=== PATIENT | male | born 1990 | race African-American/Black ===

== ENCOUNTER 2024-05-30 09:28 | Outpatient (AMB) | payer MEDICAID, SELFPAY ==
[2024-05-30 09:41] VITALS: BP 142/92; PULSE 102; RESP 19; TEMP 36.4; O2SAT 97; BMI 18.6
--- NOTE | 2024-05-30 09:41 | PD.GSCLVISIT ---
Vital Signs - [facility] 05/30/24 09:41 Height 1.91 m Height Method Stated Weight 67.614 kg Weight Measurement Method Standing Scale BMI 18.6 BP 142/92 H Blood Pressure Source Automatic Cuff Blood Pressure Location Left Upper Arm Position Sitting Respiration 19 Pulse 102 H Pulse Source Monitor Temp 97.6 F Temp Source Temporal Artery Scan Pulse Oximetry (%) 97 Oxygen Delivery Method Room Air Med/Allergies Allergies & Medications Allergies No Known Allergies Allergy (Verified 05/30/24 09:42) Medication Reconciliation Unobtainable 05/30/24 [History Confirmed 05/30/24] MA Intake Visit Data Collection New Patient or Established: New Patient (never been to [facility]) Seen by Clinical Staff ONLY (RN/MA): No Reason for Visit:: referral crohns disease Pain Present Currently: Yes Pain Location: Unable to identify Pain scale:: 10 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 Discussed the benefits of quitting smoking with patient. Encouraged patient to quit smoking and provided Cessation assistance materials and resources. Tobacco Use: Cigarette Years smoked: 2 Are you interested in quitting?: No Would you like additional Smoking Cessation Counseling?: No Immunization / Flu Flu Vaccine in the Last 12 Months: Yes Flu Vaccine Exclusion Criteria: Already Received Past Medical History Past Medical History CARDIAC: Negative Cardiac Disorders RESPIRATORY: Negative Asthma GENITOURINARY: Negative Renal Disease ENDOCRINE: Negative Diabetes Mellitus Type 2 HEMATOLOGIC: Negative Sickle Cell Disease Social History SMOKING STATUS: Smoking status: Current every day smoker HPI HPI Narrative 33 y/o M with Crohn disease presents with perianal drainage. Pt states he has long had perianal fistulae and is currently having stool output from the fistula, moreso than per rectum. He also reports spotting blood when whe wipes the area. He states that he had mild improvement with zosyn given during his recent hospitalization. He reports abdominal pain with watery diarrhea x6-7 a day, nausea due to pain, chills and weight loss over the years but denies any hemorrhoids. Pt is currently taking remicade per his GI which has been on for three years, he reports it is an improvement from when he was on humira previously but he has not tried any other medications. He has GI follow up on Jul 05, 2024 Of note his last colonoscopy was 2 years ago and he has never had EGD. Pt saw a surgeon in [place] who stated he could have a temporary diverting ostomy to allow the fistulae to heal; pt wanted to seek a second opinion before pursuing this surgery PMH: Crohn disease, pt reports diagnosed 17 years ago PSH: Seton placed 2 years ago but later removed All: NKDA Meds: Remicade for past 3 years, Prednisone as needed FHx: mother and father have HTN Social: not currently working, lives with parents and 3 dogs, denies tobacco or etoh use but reports using Marijuana for pain control and appetite stimulant. ROS Review of Systems Systems Reviewed: All systems reviewed, normal except as documented Constitutional Constitutional: Reports chills, Reports excessive sweating, Reports fatigue, Denies fever(s) and Reports poor appetite Eyes Eyes: Denies change in vision ENT Ears, Nose, Mouth, and Throat: Denies abnormal hearing and Denies odynophagia Cardiovascular Cardiovascular: Denies edema, Reports lightheadedness and Reports rapid heart rate Gastrointestinal Gastrointestinal: Reports abdominal pain, Reports nausea and Denies odynophagia Neurologic Neurologic: Denies abnormal hearing Endocrine Endocrine: Reports excessive sweating and Reports fatigue Objective/Exam General General Appearance: alert and cooperative Head Head exam: atraumatic Chest Chest inspection: Present normal inspection Resp Respiratory exam: Present normal lung sounds bilaterally; Absent wheezes or stridor Card Cardiovascular exam: Present regular rate and normal heart sounds Abdominal Abdominal tenderness: Present LLQ Rectal Rectal exam: Present other (approx 3cm to the right of anus there is a fistula with an erythematous, 1cm opening, draining brown stool. No surrounding erythema, tender to palpation) Assessment & Plan Diagnosis / Problem List (1) Crohn's disease with fistula: Status: Acute Assessment & Plan: 33M with longstanding history of Crohn's disease, with perianal fistula presenting for second surgical opinion. I recommended pt follow up with his GI to discuss switching from remicade to another agent, as he has been on it for 3 years and reports his symptoms have only minimally improved; because there is a chance a different medication could control his symptoms better I gave the opinion that it is reasonable to hold off on any surgical intervention for now, as long as he finds his symptoms manageable enough in the meantime. I also recommended he discuss EGD/colonoscopy with his GI at his appt next month as his referral included the report of a CT scan done 03/2024 showing duodenal thickening. All questions were answered and pt is encouraged to reach out if he would like to discuss any further Office Procedures GNS Level of Care Nursing/Assessment Patient Status: Initial/New Patient Nursing Assessment/Reassesment: Medication Reconciliation, Update PMH in EMR and Vital Signs Coordination of Care: Complex Care and Chronic Disease 1-5, Education Complex Pt/Fam, Consent,records obtained, informed consent, 1 Ins Authorization, Lab and Imaging orders, Results/Orders obtained and Staff clarify orders New Patient Charge New Patient Point Assignment: [id number] New Patient Point Charge: MEDICAL SECRETARY RECEPTIONIST Level 4 ([id number]) Patient Portal Questionaires Social History Tobacco History Smoking Status: Current every day smoker Domestic Abuse History Do You Feel Safe at Home: Yes Review of Systems Report any current symptoms Only answer those that you have currently: General Complaints chills: Yes excessive sweating: Yes fatigue: Yes fever(s): No poor appetite: Yes Eyes change in vision: No Ear, Nose, & Throat abnormal hearing: No pain with swallowing: No Heart & Circulation swelling: No lightheadedness: Yes fast heart rate: Yes Digestive System abdominal pain: Yes nausea: Yes Past Medical History Past Medical History Have you ever been diagnosed with any of the following: Respiratory Problems Asthma: No Genital/Urinary Problems Renal Disease: No Endocrine Problems Diabetes Mellitus Type 2: No Blood Problems Sickle Cell Disease: No
== END 2024-05-30 10:53 | disposition home or self-care (01) ==
LOC: HODSRG 09:28
PROVIDERS: PCP Internal Medicine Endocrinology, Diabetes & Metabolism; Referring Provider Internal Medicine Endocrinology, Diabetes & Metabolism; Supervising Provider Surgery; Visit Provider Surgery
DX: K50.913 Crohn's disease, unspecified, with fistula (principal)
CPT/HCPCS: 99204; G0463

== ENCOUNTER 2024-07-24 08:44 | Inpatient (IN) | payer MEDICAID, SELFPAY ==
[2024-07-24 09:00] VITALS: BP 124/79; PULSE 87; RESP 16; TEMP 36.7; O2SAT 100; BMI 19.9
--- NOTE | 2024-07-24 09:04 | PD.EDSKIN ---
ED Skin Abcess FB-RME/HPI General Chief complaint: Skin/Abscess/Foreign Body Stated complaint: ABSCESS ON R BUTTOCK Time Seen by Provider: 07/24/24 08:54 Arrival date/time: 07/24/24 08:44 RME / HPI RME / HPI narrative: This section includes all my notes and documentations, including HPI, PE, and ED course.? Carrillo Azevedo MD HPI: 33 year old male with history of Crohn's disease presents to the ED for evaluation of abscess to his right buttock beginning 3 days ago. Accompanied by pain, swelling, and feeling feverish. Pain aggravated with sitting or movements. Reportedly has had similar abscess's before that was drained at [facility] months ago . States he had antibiotics left over and began taking those 2 days ago with no change. No other complaints. ROS: All negative except as documented in HPI. Physical Exam: General:? Alert and oriented.? In severe pain when sitting or in supine position. Eyes:? Conjunctivae and lids clear.? ENT:? No nasal congestion.? Neck:? Supple.? Heart:? RRR.? Lungs:? No respiratory distress.? Good air movement.? No rhonchi, wheezing, rales.?? Abdomen:? Soft and nontender.?? Rectal: Right perianal area there is a vaughn sized fluctuant mass with erythema, edema, calor and tenderness to palpation. Legs:? No clubbing, cyanosis, edema.? Skin:? Warm and dry.?? Neuro:? Alert and oriented X 3.?? I reviewed all diagnostic test results. My review of the abdominal CT report is: Right perianal inflammatory change with fistulous tract extending from the anus to the intergluteal fold on the right, 27 x 12 mm posterior right perianal abscess. Blood tests and urine tests?unremarkable. At this point, diagnoses include?severe right perianal abscess. Treatment here included?IV fluid and Zosyn and morphine and Dilaudid. I discussed the case with our surgeon and our hospitalist.? About the presentation and exam and diagnostics and treatments here.? And need of further care in the hospital.? Will accept the patient. Carrillo Azevedo MD Related Data Home Medications ?Medication ?Instructions ?Recorded ?Confirmed No Known Home Medications 07/24/24 07/24/24 Allergies Allergy/AdvReac Type Severity Reaction Status Date / Time No Known Allergies Allergy Verified 07/24/24 16:28 Review of Systems Review of Systems Systems Reviewed: All systems reviewed, normal except as documented Past Medical History Past Medical History CARDIAC: Negative Cardiac Disorders or Congestive Heart Failure RESPIRATORY: Negative Chronic Obstructive Pulmonary Disease (COPD) or Asthma GASTROINTESTINAL: Positive Crohn's Disease GENITOURINARY: Negative Renal Disease ENDOCRINE: Negative Diabetes Mellitus Type 1 or Diabetes Mellitus Type 2 HEMATOLOGIC: Negative Sickle Cell Disease Social History SMOKING STATUS: Never smoker ED Exam Narrative Physical exam: As noted in HPI Course Quality Measures none Orders Category Date Time Status COVID-19 Screening Questionnaire NOW Care 07/24/24 14:[address] Screening NOW Care 07/24/24 10:13 Active Decision to Admit X1 Care 07/24/24 14:50 Completed Saline [Insert IV] NOW Care 07/24/24 09:14 Active Consult to General Surgery Stat Cons 07/24/24 14:[address] abdomen pelvis w con Stat Exams 07/24/24 10:13 Completed Amylase Stat Lab 07/24/24 09:55 Completed Blood Culture (Lab) Stat Lab 07/24/24 09:50 Received CBC Stat Lab 07/24/24 09:55 Completed CMP [Comprehensive Metabolic Panel] Stat Lab 07/24/24 09:55 Completed CRP [C-Reactive Protein] Stat Lab 07/24/24 09:55 Completed Drug Screen,Urine Stat Lab 07/24/24 13:42 Completed ESR [Sed Rate (ESR)] Stat Lab 07/24/24 09:55 Completed Lactate (Lactic Acid) Stat Lab 07/24/24 09:55 Completed Lipase Stat Lab 07/24/24 09:55 Completed Magnesium Stat Lab 07/24/24 09:55 Completed Procalcitonin Stat Lab 07/24/24 09:55 Completed UA, C/S IF [Urinalysis, C/S if Indicated] Stat Lab 07/24/24 13:42 Completed HYDROmorphone INJ [Dilaudid Inj] Med 07/24/24 13:07 Discontinued 1 mg IVP X1 ONE Ketorolac Inj [Toradol Inj] Med 07/24/24 10:50 Discontinued 30 mg IVP X1 ONE Morphine Inj Med 07/24/24 10:50 Discontinued 4 mg IVP X1 ONE Ondansetron Inj [Zofran Inj] Med 07/24/24 13:07 Discontinued 4 mg IV X1 ONE Piper/Tazo Inj [Zosyn Inj] 3.375 gm Med 07/24/24 09:14 Discontinued Sodium Chloride 0.9% (P) [Ns 0.9% (P)] 50 ml IV X1 Sodium Chloride 0.9% 1000 ml [Ns] 1,000 ml Med 07/24/24 09:14 Discontinued IV 999 mls/hr Vital Signs Vital signs: Vital Signs Temperature 98.1 F 07/24/24 09:00 Pulse Rate 87 07/24/24 09:00 Respiratory Rate 16 07/24/24 09:00 Blood Pressure 124/79 07/24/24 09:00 Pulse Oximetry (%) 100 07/24/24 09:00 Oxygen Delivery Method Room Air 07/24/24 09:00 Pulse ox is 100% on room air which is adequate. Skin / Abscess / Foreign Body MDM Narrative MDM Narrative:: Edwina James am scribing for and in the presence of Dr. Azevedo. Patient data External records reviewed:: [facility] previous records (I reviewed H&P on 10/21/2020 ) Clinical information provided by:: patient Social determinants that could affect healthcare access:: none Patient has the following chronic illnesses:: Crohn's disease, previous abscess on buttocks How is presenting disease/condition affected by chronic disease/condition?: exacerbated by Evaluation data The following diagnostics were reviewed and interpreted by me:: lab results and radiology exam(s) Lab and/or radiology exams considered but not ordered:: None Interpretation Summary: Severe right perianal abscess Medications / Prescriptions Medications or Prescriptions considered but not ordered:: None Medication administrations:: Medication Administration History Acetaminophen (Acetaminophen 325 Mg Tablet) 650 mg PO Q6H PRN PRN Reason: Fever >100.5 Stop: 08/23/24 15:25 Acetaminophen (Acetaminophen 325 Mg Tablet) 650 mg PO Q6H PRN PRN Reason: PAIN SCALE 1-3 (mild Stop: 08/23/24 15:25 Docusate Sodium (Docusate Sod 100 Mg Capsule) 100 mg PO QDAY ISSA; Protocol Stop: 08/24/24 08:59 Heparin Sodium (Porcine) (Heparin Sod Inj 5000 Unit/Ml Vial) 5,000 unit SC Q8HR ISSA Stop: 08/07/24 21:59 Sodium Chloride (Ns) 1,000 mls @ 110 mls/hr IV .Q9H6M [facility] Stop: 07/25/24 15:30 Last Admin: 07/24/24 16:09 Dose: 110 mls/hr Documented By: AMOL Piperacillin/Tazobactam/Dextrose (Zosyn) 50 mls @ 12.5 mls/hr IV Q8HR [facility]; Protocol Stop: 07/31/24 15:44 Last Admin: 07/24/24 16:03 Dose: 12.5 mls/hr Documented By: AMOL Ibuprofen (Ibuprofen Tab 400 Mg Tablet) 400 mg PO Q8HR PRN PRN Reason: Moderate Pain 4-7 Stop: 08/23/24 15:43 Ketorolac Tromethamine (Ketorolac Inj 30 Mg/Ml Vial) 30 mg IVP Q6HR PRN PRN Reason: severe pain 8-10 Stop: 07/29/24 15:43 Last Admin: 07/24/24 16:15 Dose: 30 mg Documented By: AMOL Ondansetron HCl (Ondansetron Inj 2 Mg/Ml Inj 2 Ml) 4 mg IV Q6H PRN; Protocol PRN Reason: NAUSEA OR VOMITING Stop: 08/23/24 15:25 Discontinued Medications Hydromorphone HCl (Hydromorphone Inj 2 Mg/Ml Vial) 1 mg IVP X1 ONE Stop: 07/24/24 13:08 Last Admin: 07/24/24 13:15 Dose: 1 mg Documented By: AMOL Sodium Chloride (Ns) 1,000 mls @ 999 mls/hr IV .Q1H1M ONE Stop: 07/24/24 10:14 Last Infusion: 07/24/24 12:03 Dose: Infused Documented By: Admin: 07/24/24 10:46 Dose: 999 mls/hr Documented By: AMOL Piperacillin Sod/Tazobactam (Sod 3.375 gm/ Sodium Chloride) 50 mls @ 100 mls/hr IV X1 ONE Stop: 07/24/24 09:43 Last Infusion: 07/24/24 12:03 Dose: Infused Documented By: Admin: 07/24/24 10:43 Dose: 100 mls/hr Documented By: AMOL Piperacillin Sod/Tazobactam (Sod 3.375 gm/ Sodium Chloride) 100 mls @ 200 mls/hr IV Q6HR ISSA Stop: 07/31/24 15:32 Last Admin: 07/24/24 16:21 Dose: Not Given Documented By: AMOL Non-Admin Reason: Cancelled by Provider Ketorolac Tromethamine (Ketorolac Inj 30 Mg/Ml Vial) 30 mg IVP X1 ONE Stop: 07/24/24 10:51 Last Admin: 07/24/24 11:02 Dose: 30 mg Documented By: DB Morphine Sulfate (Morphine Sulf Inj 10 Mg/Ml Vial) 4 mg IVP X1 ONE Stop: 07/24/24 10:51 Last Admin: 07/24/24 11:02 Dose: 4 mg Documented By: DB Ondansetron HCl (Ondansetron Inj 2 Mg/Ml Inj 2 Ml) 4 mg IV X1 ONE; Protocol Stop: 07/24/24 13:08 Last Admin: 07/24/24 13:14 Dose: 4 mg Documented By: AMOL Patient given IV fluids, pain medications, Zosyn. Consultations Consultation(s) initiated? (list below): Yes Consultation #1 (Physician, Specialty, Details): I spoke with general surgeon Dr. Horton. Discussed patients PMHx, HPI, ED course, exam findings, labs, and radiology results. Time: 14:14 Consultation #2 (Physician, Specialty, Details): I spoke with hospitalist Dr. [place] regarding admission. Discussed patients PMHx, HPI, ED course, exam findings, labs, and radiology results. The hospitalist agree to accept the patient for admission. Time: 14:30 Diagnosis Skin/Abscess Differential Diagnosis: abscess of skin or subcutaneous tissue, urticaria, cellulitis, contact dermatitis and other (Abscess, sepsis) Most likely diagnosis given after review of the tests above:: Perianal abscess Admission Indicated Admission indicated?: indicated Explain why admission is indicated or not indicated:: Severe perianal abscess Admission Request Was there a request for admission?: Yes Admission Attestation Admission request attestation: Discussed case with Hospitalist service regarding admission. Discussed patients ED course, exam findings, labs, and radiology results. The Hospitalist [agrees,declines] to accept the patient for admission. Disposition Plan Disposition Plan: Admit Discharge Plan Plan Patient Disposition: Admit Acute Care w/in Hospital Problem List Clinical Impression: Perianal abscess
[2024-07-24 10:08] LABS: Lactate (Lactic Acid) 0.5 mMol/L (0.4-2.0)
[2024-07-24 10:11] LABS: Basophils % (Auto) 0 % (0-2.5); Eosinophils % (Auto) 1 % (0-10); Hematocrit 38.9 % (41.0-53.0); Hemoglobin 12.3 g/dL (13.5-16.0); Immature Granulocytes % (Auto) 0 % (0-0); Immature Granulocytes Auto 0.01 Thou/mm3 (0.00-0.00); Lymphocytes # (Auto) 1.4 Thou/mm3 (1.0-4.8); Lymphocytes % (Auto) 31 % (10-50); Mean Corpuscular HGB Conc 31.6 g/dl (31.0-37.0); Mean Corpuscular Hemoglobin 24.5 pg (25.0-35.0); Mean Corpuscular Volume 78 fL (80-100); Monocytes # (Auto) 0.4 Thou/mm3 (0.0-0.8); Monocytes % (Auto) 9 % (0-12); Neutrophils # (Auto) 2.8 Thou/mm3 (1.8-7.7); Neutrophils % (Auto) 59 % (37-80); Nucleated Red Blood Cell % 0 /100 WBC (0); Platelet Count 219 Thou/mm3 (140-440); RDW Standard Deviation 43.7 fL (35.1-43.9); Red Blood Count 5.02 Miln/mm3 (4.50-5.90); White Blood Count 4.7 Thou/mm3 (3.8-10.6)
--- NOTE | 2024-07-24 10:13 | XR_ITS ---
Examination: CT abdomen with intravenous contrast CT pelvis with intravenous contrast 2-D coronal reconstructions 2-D sagittal reconstructions Date and time of exam:July 24, 2024 1220 hours INDICATIONS: History right buttock abscess redness swelling and pain beginning 3 days. CTDI: vol (mGy) 5.52 DLP: (mGycm) 321 Technique: Multiple axial sections of the abdomen and pelvis have been obtained. 64 slice high-resolution scanner used. 3 mm axial sections have been obtained, post intravenous injection 60 cc [id number] 2-D sagittal, coronal reconstructions obtained. Low dose protocols were performed. One or more of the following dose reduction techniques were used; automated exposure control, adjustment of the mA and/or KV according to patient size, use of iterative reconstruction technique. Findings: No focal liver lesions Hepatomegaly 19 cm No gallstones No pancreatic mass Mild intrahepatic biliary tract dilatation The pancreatic duct is dilated 5.5 mm Anterior right renal cyst, 18 mm with calcification in the wall of the cyst Smaller cysts more caudad right kidney No hydronephrosis No ureteral calculi Aorta normal size Wall thickening involving the right colon with edema axial image 160 as well as the transverse and descending colon Urinary bladder wall thickening up to 12 mm Moderate osteopenia IMPRESSION: Hepatomegaly 19 cm Dilated pancreatic duct 5.5 mm, consider MRCP follow-up to assess etiology of the dilated pancreatic duct No hydronephrosis Diffuse nonspecific colitis pattern No obstruction
[2024-07-24] MEDS: PIPER/TAZO INJ 3.375 GM in SODIUM CHLORIDE 0.9% (P) 50 ML IV (10:43)
[2024-07-24] MEDS: SODIUM CHLORIDE 0.9% 1000 ML 1,000 ML 999 ML IV (10:46)
[2024-07-24 10:47] LABS: Alanine Aminotransferase 15 U/L (10-49); Albumin, Serum 4.5 gm/dL (3.5-5.0); Albumin/Globulin Ratio 1.3 (1.2-2.2); Alkaline Phosphatase 55 U/L (46-116); Anion Gap 7 (7-16); Aspartate Amino Transferase 15 U/L (0-34); BUN/Creatinine Ratio 16 Ratio (12-20); Bilirubin,Total 0.2 mg/dL (0.3-1.2); Blood Urea Nitrogen 13 mg/dL (9-23); C-Reactive Protein 5.4 mg/dL (0.0-0.9); Calcium 9.1 mg/dL (8.3-10.6); Calcium (Corrected) 9.1 mg/dL (8.5-10.1); Carbon Dioxide 27.8 mMol/L (20.0-31.0); Chloride 103 mMol/L (98-107); Creatinine (Component) 0.8 mg/dL (0.6-1.3); Estimated Creatinine Clearance 129.4 mL/min (>60); Globulin 3.5 gm/dL (2.3-3.5); Glucose 88 mg/dL (74-106); Magnesium 1.8 mg/dL (1.6-2.6); Osmolality,Calculated 274 (275-295); Potassium 3.8 mMol/L (3.4-5.1); Sodium 138 mMol/L (136-145); eGFR > 60 See Note
[2024-07-24] MEDS: MORPHINE SULF INJ 10 MG/ML VIAL 4 MG IVP (11:02)
[2024-07-24] MEDS: KETOROLAC INJ 30 MG/ML VIAL IVP ×2 (11:02→16:15)
[2024-07-24 12:04] VITALS: BP 99/63; PULSE 55; RESP 16; TEMP 36.7; O2SAT 99
[2024-07-24 12:40] LABS: Sed Rate (ESR) 16 mm/hr (0-15)
[2024-07-24] MEDS: ONDANSETRON INJ 2 MG/ML INJ 2 ML 4 MG IV (13:14)
[2024-07-24] MEDS: HYDROmorphone INJ 2 MG/ML VIAL 1 MG IVP (13:15)
[2024-07-24 13:51] LABS: Collection Type, Urine Clean Catch; Squamous Epithelial Cell,Urine 0 /hpf (0-5)
[2024-07-24 14:08] LABS: Bilirubin,Urine Negative (Negative); Blood,Urine Negative (Negative); Clarity,Urine Clear (Clear/Hazy); Color,Urine Yellow (Lt Yel-Yel); Culture Indicated,Urine Not Indicated; Glucose, Urine Negative (Negative); Ketones,Urine Trace (Negative); Leukocyte Esterase,Urine Negative (Negative); Nitrite,Urine Negative (Negative); Protein,Urine 1+ (Neg - Trace); RBC,Urine 5 /hpf (0-3); Urobilinogen,Urine Negative mg/dL (0.0-1.0); WBC,Urine 1 /hpf (0-5)
[2024-07-24 14:11] LABS: Specific Gravity,Urine 1.015 (1.001-1.035)
[2024-07-24 14:15] LABS: Amphetamine/Methamp Scrn,U Negative (Negative); Barbiturate Screen,Urine Negative (Negative); Benzodiazepines Screen,Urine Negative (Negative); Benzoylecgonine Screen, Ur Negative (Negative); Fentanyl Screen,Urine Negative (Negative); Opiate Screen,Urine Positive (Negative); THC Screen,Urine Positive (Negative)
[2024-07-24 14:21] LABS: Amylase 61 U/L (30-118); Lipase 26 U/L (12-53)
[2024-07-24 14:25] VITALS: BP 109/57; PULSE 57; RESP 16; TEMP 36.8; O2SAT 97
--- NOTE | 2024-07-24 15:48 | ESHP_ITS ---
Documentation for date of: 07/24/24 HPI History of Present Illness Chief complaint: Right buttock abscess History of present illness: 33-year-old male with past medical history of Crohn's disease, status post multiple incision and drainages of abscesses who came to the ED due to right buttock pain. Presentation patient started having pain with sitting down, moving due to pain in the right buttock. States his right buttock started swelling became erythematous and noticed fluid drainage going down his leg. Patient states he is also been having nausea and vomiting and diarrhea all started 3 days ago. Denies shortness of breath, chest pain, abdominal pain, blood in the stool or blood in the urine or blood in vomitus. Patient will be admitted for antibiotics for abscess and possible incision and drainage procedure. ED course: Vitals on arrival unremarkable, labs show hemoglobin 12.3, CRP 5.4 rest of labs unremarkable UA was negative for infection, urine drug screen positive for opiates and THC. CT abdomen pelvis was done showed hepatomegaly, dilated pancreatic duct 5.5 cm, diffuse colitis, in the ED patient received 1 L NS, Zosyn, morphine, ketorolac, Zofran. General surgery Dr. Horton consulted for possible I&D procedure. PMHx: Crohn's disease SX Hx: 6X incision and drainage Social Hx: Denies tobacco, denies alcohol use, denies illicit substances, however uses THC F Hx: Unknown Review of Systems Review of Systems Narrative Review of Systems: Narrative ROS GENERAL: Denies fevers/chills or diaphoresis. HEENT: Denies headache or visual/hearing changes. Denies nasal discharge. NEURO: Denies unusual weakness or difficulty speaking. CARDIO: Denies chest pain or palpitations. PULM: Denies SOB, coughing, or wheezing. GI: Denies abdominal pain, + diarrhea, denies bright red blood per rectum or melena. Reports having BMs. URO: Denies burning/itching/pain/urinary changes. MSK/EXT/SKIN: Denies joint/skeletal/muscle pain, issues/changes in upper or lower extremities, itchiness, or superficial pain. PSYCH: Cooperative, pleasant mood & affect. The rest of the review of systems is otherwise negative. Exam Vital Signs Temp Pulse Resp BP Pulse Ox O2 Del Method 98.3 F 57 L 16 109/57 L 97 Room Air 07/24/24 14:25 07/24/24 14:25 07/24/24 14:25 07/24/24 14:25 07/24/24 14:25 07/24/24 14:25 Narrative Exam Physical Exam GENERAL: NAD, AAOx3 HEENT: Moist mucosa. Eyes open, symmetrical, & clear CARDIO: Heart RRR, no obvious murmurs PULM: No noted coughing/dyspnea CTA B/L, no R/W/R GI: Abdomen soft, nondistended, no pain on palpation. BSx4, mass in the right buttock erythematous tender to touch swollen SKIN/MSK/EXT: No wounds/rashes/edema/amputations, no pain on palpation. Pedal pulses present B/L NEURO: AAOx3, no focal neuro deficits, able to move all 4 extremities Results: Labs 07/25/24 05:30 07/25/24 05:30 Labs: Short CBC 07/24/24 Range/Units 09:55 WBC 4.7 (3.8-10.6) Thou/mm3 Hgb 12.3 L (13.5-16.0) g/dL Hct 38.9 L (41.0-53.0) % Plt Count 219 (140-440) Thou/mm3 BMP 07/24/24 09:55 Sodium 138 Potassium 3.8 Chloride 103 Carbon Dioxide 27.8 BUN 13 Creatinine 0.8 Glucose 88 Calcium 9.1 Liver Function 07/24/24 Range/Units 09:55 Total Bilirubin 0.2 L (0.3-1.2) mg/dL AST 15 (0-34) U/L ALT 15 (10-49) U/L Alkaline Phosphatase 55 (46-116) U/L Albumin 4.5 (3.5-5.0) gm/dL Urine 07/24/24 Range/Units 13:42 Urine Color Yellow (Lt Yel-Yel) Urine Clarity Clear (Clear/Hazy) Urine pH 6.0 (5.0-7.0) Ur Specific [place] 1.015 (1.001-1.035) Urine Protein 1+ A (Neg - Trace) Urine Glucose (UA) Negative (Negative) Quality Measures Quality Measures none Medications Home Medications and Allergies Home Medications ?Medication ?Instructions ?Recorded ?Confirmed ?Type No Known Home Medications 07/24/24 07/24/24 History Allergies Allergy/AdvReac Type Severity Reaction Status Date / Time No Known Allergies Allergy Verified 07/24/24 16:28 Visit Medications Acetaminophen (Acetaminophen 325 Mg Tablet) 650 mg PO Q6H PRN PRN Reason: Fever >100.5 Stop: 08/23/24 15:25 Acetaminophen (Acetaminophen 325 Mg Tablet) 650 mg PO Q6H PRN PRN Reason: PAIN SCALE 1-3 (mild Stop: 08/23/24 15:25 Docusate Sodium (Docusate Sod 100 Mg Capsule) 100 mg PO QDAY [facility]; Protocol Stop: 08/24/24 08:59 Heparin Sodium (Porcine) (Heparin Sod Inj 5000 Unit/Ml Vial) 5,000 unit SC Q8HR [facility] Stop: 08/07/24 21:59 Sodium Chloride (Ns) 1,000 mls @ 110 mls/hr IV .Q9H6M [facility] Stop: 07/25/24 15:30 Piperacillin/Tazobactam/Dextrose (Zosyn) 50 mls @ 12.5 mls/hr IV Q8HR [facility]; Protocol Stop: 07/31/24 15:44 Ibuprofen (Ibuprofen Tab 400 Mg Tablet) 400 mg PO Q8HR PRN PRN Reason: Moderate Pain 4-7 Stop: 08/23/24 15:43 Ketorolac Tromethamine (Ketorolac Inj 30 Mg/Ml Vial) 30 mg IVP Q6HR PRN PRN Reason: severe pain 8-10 Stop: 07/29/24 15:43 Ondansetron HCl (Ondansetron Inj 2 Mg/Ml Inj 2 Ml) 4 mg IV Q6H PRN; Protocol PRN Reason: NAUSEA OR VOMITING Stop: 08/23/24 15:25 Discontinued Medications Hydromorphone HCl (Hydromorphone Inj 2 Mg/Ml Vial) 1 mg IVP X1 ONE Stop: 07/24/24 13:08 Last Admin: 07/24/24 13:15 Dose: 1 mg Sodium Chloride (Ns) 1,000 mls @ 999 mls/hr IV .Q1H1M ONE Stop: 07/24/24 10:14 Last Infusion: 07/24/24 12:03 Dose: Infused Piperacillin Sod/Tazobactam (Sod 3.375 gm/ Sodium Chloride) 50 mls @ 100 mls/hr IV X1 ONE Stop: 07/24/24 09:43 Last Infusion: 07/24/24 12:03 Dose: Infused Piperacillin Sod/Tazobactam (Sod 3.375 gm/ Sodium Chloride) 100 mls @ 200 mls/hr IV Q6HR ISSA Stop: 07/31/24 15:32 Ketorolac Tromethamine (Ketorolac Inj 30 Mg/Ml Vial) 30 mg IVP X1 ONE Stop: 07/24/24 10:51 Last Admin: 07/24/24 11:02 Dose: 30 mg Morphine Sulfate (Morphine Sulf Inj 10 Mg/Ml Vial) 4 mg IVP X1 ONE Stop: 07/24/24 10:51 Last Admin: 07/24/24 11:02 Dose: 4 mg Ondansetron HCl (Ondansetron Inj 2 Mg/Ml Inj 2 Ml) 4 mg IV X1 ONE; Protocol Stop: 07/24/24 13:08 Last Admin: 07/24/24 13:14 Dose: 4 mg Assessment & Plan Plan 33-year-old male with past medical history of Crohn's disease presented to the ED due to right buttock pain. Will be admitted for antibiotic therapy and possible incision and drainage. General surgery Dr. Horton consulted. #Right buttock abscess #Cellulitis #Right buttock pain #History of Crohn's disease # Possible anal fistula # Marijuana abuse Patient has history of Crohn's disease and has had multiple incision and drainage procedures for right buttock abscess Patient has erythema, swelling, and fluid drainage from right buttock abscess General Surgeon, Dr. Horton consulted, will start antibiotics and will evaluate for possible incision and drainage procedure Dr. Horton states patient might need a colorectal surgeon evaluation or possible transfer from this institution however not emergent at this time CT showed Wall thickening involving the right colon with edema axial image 160 as well as the transverse and descending colon -On Zosyn -Maintenance fluids 110 cc/h -Pain control Tylenol, ketorolac, ibuprofen -General surgeon Dr. Horton consulted, appreciate recommendations Case discussed with my senior Dr. Gonzalez and my attending Dr. Valencia Reyes MD PGY-1 Disposition: MedSurg Fluids: NS Feeding: Regular Thrombo prophylaxis: Heparin Gastric Ulcer prophylaxis: Not indicated CODE STATUS: Full code Attending Provider Attestation/Addendum I reviewed labs, imaging, EKG, home medications and prior available records. Face to face evaluation was performed by me. I have personally examined the patient and discussed assessment and plan with the IM team. I reviewed the resident note and agree with the plan with exceptions as below. 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
[2024-07-24] MEDS: PIPER/TAZO 3.375 GM 50 ML IV ×2 (16:03→23:09)
[2024-07-24] MEDS: SODIUM CHLORIDE 0.9% 1000 ML 1,000 ML 110 ML IV ×2 (16:09→23:11)
[2024-07-24 16:10] VITALS: BP 108/73; PULSE 50; RESP 18; TEMP 36.9; O2SAT 100
--- NOTE | 2024-07-24 19:05 | ESCONSULT_ITS ---
HPI Consult details Consult date: 07/24/24 Reason for consultation narrative: The patient was seen on consultation because of perianal abscess History of present illness: History of present illness revealed that the patient had this abscess for the past 3 days. 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 He was diagnosed with Crohn's disease in 2008 and is being followed by a mechanical apprentice Dr. Cuenca in [place]. Patient does not have other symptoms of Crohn's like diarrhea or abdominal pain but this fistula has been the major issue all the time. He underwent seton placement about 3 years ago and subsequently it was removed. He was also referred by his primary care physician to [facility] for specialist for which she is waiting. Patient is disabled because of the Crohn's disease. He denies any fever or chills. He came to the emergency room because of ongoing pain. Past Medical History Past Medical History CARDIAC: Negative Cardiac Disorders or Congestive Heart Failure RESPIRATORY: Negative Chronic Obstructive Pulmonary Disease (COPD) or Asthma GASTROINTESTINAL: Positive Crohn's Disease GENITOURINARY: Negative Renal Disease ENDOCRINE: Negative Diabetes Mellitus Type 1 or Diabetes Mellitus Type 2 HEMATOLOGIC: Negative Sickle Cell Disease Social History SMOKING STATUS: Never smoker Meds Home Medications and Allergies Home Medications ?Medication ?Instructions ?Recorded ?Confirmed ?Type No Known Home Medications 07/24/24 07/24/24 History Allergies Allergy/AdvReac Type Severity Reaction Status Date / Time No Known Allergies Allergy Verified 07/24/24 16:28 Exam Vital Signs Temp Pulse Resp BP Pulse Ox O2 Del Method 98.4 F 50 L 18 108/73 100 Room Air 07/24/24 16:10 07/24/24 16:10 07/24/24 16:10 07/24/24 16:10 07/24/24 16:10 07/24/24 16:10 Narrative Exam Physical examination revealed 33-year-old white male who appeared to be in his stated age. He is 6 feet 2 inches tall weighing 155 pounds with BMI of 20 his vital signs are normal Routine Abdominal Exam Comments: Examination of the abdomen is negative Routine Rectal Exam Comments: Rectal area revealed surgical scar and possibly a fistula on the right side of the buttock. There is also some perianal abscess which is tender to palpate and is draining some fluid upon palp patient. It is extremely painful and he would not let me examine Results Results: Laboratory Laboratory Narrative: Patient's laboratory workup is normal Results: Imaging Imaging narrative: CT scan showed perianal abscess and fistula Assessment & Plan Additional Assessment Additional comments: Impression: Perianal abscess probably due to fistula in ano that is chronic Crohn's disease Plan Plan: The maximum we can do for the gentleman is to drain the perianal abscess. Treating fistulous is very complicated especially in the presence of Crohn's disease. He has been started on antibiotics and I will arrange for incision and drainage. However meanwhile I will ask Dr. Diaz to evaluate the patient whether she could offer anything. Thank you very much
[2024-07-24 19:45] VITALS: BP 133/77; PULSE 47; RESP 16; TEMP 36.6; O2SAT 98
--- NOTE | 2024-07-24 20:29 | PC.NURSE ---
per in-patient pharmacist okay to give next dose of zosyn at 2300. Pharmacist Lin was made aware that the last dose was infused at 1938 pm.
[2024-07-24] MEDS: MORPHINE SULF INJ 10 MG/ML VIAL IVP (21:41)
[2024-07-24] MEDS: DOXYCYCLINE 100 MG TABLET PO (21:41)
[2024-07-24 23:51] VITALS: BP 117/78; PULSE 51; RESP 18; TEMP 36.8; O2SAT 100
--- NOTE | 2024-07-25 01:42 | PC.NURSE ---
pt refused to be NPO and stated that he does not want to get I&D, SX, or any procedure. Pt mentioned that he only wants abx and pain meds. Dr. Gamino was made aware, no new orders for pt at this time.
[2024-07-25 04:00] VITALS: BP 129/77; PULSE 53; RESP 18; TEMP 36.8; O2SAT 99
[2024-07-25] MEDS: MORPHINE SULF INJ 10 MG/ML VIAL IVP ×2 (04:24→11:09)
[2024-07-25] MEDS: PIPER/TAZO 3.375 GM 50 ML IV ×3 (05:54→21:00)
[2024-07-25 06:03] LABS: Basophils % (Auto) 0 % (0-2.5); Eosinophils # (Auto) 0.1 Thou/mm3 (0.0-0.5); Eosinophils % (Auto) 1 % (0-10); Hematocrit 32.8 % (41.0-53.0); Hemoglobin 10.4 g/dL (13.5-16.0); Immature Granulocytes % (Auto) 0 % (0-0); Immature Granulocytes Auto 0.01 Thou/mm3 (0.00-0.00); Lymphocytes # (Auto) 1.5 Thou/mm3 (1.0-4.8); Lymphocytes % (Auto) 33 % (10-50); Mean Corpuscular HGB Conc 31.7 g/dl (31.0-37.0); Mean Corpuscular Hemoglobin 24.6 pg (25.0-35.0); Mean Corpuscular Volume 78 fL (80-100); Monocytes # (Auto) 0.4 Thou/mm3 (0.0-0.8); Monocytes % (Auto) 8 % (0-12); Neutrophils # (Auto) 2.6 Thou/mm3 (1.8-7.7); Neutrophils % (Auto) 58 % (37-80); Nucleated Red Blood Cell % 0 /100 WBC (0); Platelet Count 168 Thou/mm3 (140-440); RDW Standard Deviation 43.8 fL (35.1-43.9); Red Blood Count 4.22 Miln/mm3 (4.50-5.90); White Blood Count 4.5 Thou/mm3 (3.8-10.6)
[2024-07-25 06:42] LABS: Alanine Aminotransferase 9 U/L (10-49); Albumin, Serum 3.5 gm/dL (3.5-5.0); Albumin/Globulin Ratio 1.2 (1.2-2.2); Alkaline Phosphatase 44 U/L (46-116); Anion Gap 9 (7-16); Aspartate Amino Transferase < 10 U/L (0-34); BUN/Creatinine Ratio 18 Ratio (12-20); Bilirubin,Total 0.2 mg/dL (0.3-1.2); Blood Urea Nitrogen 11 mg/dL (9-23); Calcium 8.1 mg/dL (8.3-10.6); Calcium (Corrected) 8.5 mg/dL (8.5-10.1); Carbon Dioxide 23.4 mMol/L (20.0-31.0); Cardiac Risk Estimate 3.3 RATIO (4.0-6.7); Chloride 107 mMol/L (98-107); Cholesterol 93 mg/dL (132-200); Creatinine (Component) 0.6 mg/dL (0.6-1.3); Estimated Creatinine Clearance 163.9 mL/min (>60); Globulin 2.9 gm/dL (2.3-3.5); Glucose 77 mg/dL (74-106); HDL Cholesterol 28 mg/dL (40-60); LDL Cholesterol,Calculated 55 mg/dL (0-130); Magnesium 1.6 mg/dL (1.6-2.6); Osmolality,Calculated 275 (275-295); Potassium 3.8 mMol/L (3.4-5.1); Sodium 139 mMol/L (136-145); Thyroid Stimulating Hormone 2.21 uIU/mL (0.55-4.78); Total Protein 6.4 gm/dL (5.7-8.2); Triglycerides 50 mg/dL (30-150); eGFR > 60 See Note
[2024-07-25 08:00] VITALS: BP 138/83; PULSE 81; RESP 17; TEMP 36.4; O2SAT 98
[2024-07-25] MEDS: DOXYCYCLINE 100 MG TABLET PO (08:50)
--- NOTE | 2024-07-25 11:01 | ESPR_ITS ---
Documentation for date of: 07/25/24 Subjective Subjective Interval history: Patient seen today at the bedside fine awake, alert, oriented x 3. No overnight events reported. States abscess is draining fluid at this time. Vital signs at this time stable. Patient refused surgical intervention at this time, will continue with IV antibiotics and possible discharge in the next 24 to 48 hours. Patient is recommended to follow-up with colorectal surgery of patient's preference. Exam Vital Signs Temp Pulse Resp BP Pulse Ox O2 Del Method 97.6 F 81 17 138/83 H 98 Room Air 07/25/24 08:00 07/25/24 08:00 07/25/24 08:00 07/25/24 08:00 07/25/24 08:00 07/25/24 08:00 Narrative Exam Physical Exam GENERAL: NAD, AAOx3 HEENT: Moist mucosa. Eyes open, symmetrical, & clear CARDIO: Heart RRR, no obvious murmurs PULM: No noted coughing/dyspnea CTA B/L, no R/W/R GI: Abdomen soft, nondistended, no pain on palpation. BSx4, mass in the right buttock erythematous tender to touch swollen SKIN/MSK/EXT: No wounds/rashes/edema/amputations, no pain on palpation. Pedal pulses present B/L NEURO: AAOx3, no focal neuro deficits, able to move all 4 extremities Objective Labs 07/26/24 04:24 07/26/24 04:24 Labs: Laboratory Results - last 24 hr 07/24/24 07/24/24 07/25/24 09:55 13:42 05:30 WBC 4.5 RBC 4.22 L Hgb 10.4 L Hct 32.8 L MCV 78 L MCH 24.6 L MCHC 31.7 RDW Std Deviation 43.8 Plt Count 168 D Neut % (Auto) 58 Lymph % (Auto) 33 [place] % (Auto) 8 Eos % (Auto) 1 Baso % (Auto) 0 Neut # (Auto) 2.6 Lymph # (Auto) 1.5 [place] # (Auto) 0.4 Eos # (Auto) 0.1 Baso # (Auto) 0.0 Immature Gran # (Auto) 0.01 H Absolute Nucleated RBC 0.00 Immature Gran % 0 Nucleated RBC % 0 ESR 16 H Sodium 139 Potassium 3.8 Chloride 107 Carbon Dioxide 23.4 Anion Gap 9 BUN 11 Creatinine 0.6 Estim Creat Clear Calc 163.9 eGFR > 60 BUN/Creatinine Ratio 18 Glucose 77 Calculated Osmolality 275 Calcium 8.1 L Corrected Calcium 8.5 Magnesium 1.6 Total Bilirubin 0.2 L AST < 10 ALT 9 L Alkaline Phosphatase 44 L Total Protein 6.4 Albumin 3.5 D Globulin 2.9 Albumin/Globulin Ratio 1.2 Triglycerides 50 Cholesterol 93 L LDL Cholesterol, Calc 55 HDL Cholesterol 28 L Cholesterol/HDL Ratio 3.3 L Amylase 61 Lipase 26 TSH 2.21 Ur Collection Type Clean Catch Urine Color Yellow Urine Clarity Clear Urine pH 6.0 Ur Specific [place] 1.015 Urine Protein 1+ A Urine Glucose (UA) Negative Urine Ketones Trace Urine Blood Negative Urine Nitrite Negative Urine Bilirubin Negative Urine Urobilinogen (Auto) Negative Ur Leukocyte Esterase Negative Urine RBC 5 H Urine WBC 1 Ur Squamous Epith Cells 0 Urine Bacteria None Ur Culture Indicated? Not Indicated Urine Opiates Screen Positive A Urine Fentanyl Screen Negative Ur Barbiturates Screen Negative U Amphetamin/Meth Scrn Negative U Benzodiazepines Scrn Negative U Cocaine Metab Screen Negative U Marijuana (THC) Screen Positive A Quality Measures Quality Measures none Assessment & Plan Assessment Current Active Medications: Generic Name Dose Route Start Last Admin Trade Name Freq PRN Reason Stop Dose Admin Acetaminophen 650 mg 07/24/24 15:26 Acetaminophen 325 Mg Tablet PO 08/23/24 15:25 Q6H PRN Fever >100.5 Acetaminophen 650 mg 07/24/24 15:26 Acetaminophen 325 Mg Tablet PO 08/23/24 15:25 Q6H PRN PAIN SCALE 1-3 (mild Docusate Sodium 100 mg 07/25/24 09:00 07/25/24 08:50 Docusate Sod 100 Mg Capsule PO 08/24/24 08:59 Not Given QDAY [facility] Protocol Doxycycline Hyclate 100 mg 07/24/24 21:00 07/25/24 08:50 Doxycycline 100 Mg Tablet PO 07/31/24 20:59 100 mg BID [facility] Administration Heparin Sodium (Porcine) 5,000 unit 07/24/24 22:00 07/25/24 05:54 Heparin Sod Inj 5000 Unit/Ml Vial SC 08/07/24 21:59 Not Given Q8HR [facility] Sodium Chloride 1,000 mls @ 110 mls/hr 07/24/24 15:31 07/24/24 23:11 Ns IV 07/25/24 15:30 110 mls/hr .Q9H6M [facility] Administration Piperacillin/Tazobactam/Dextrose 50 mls @ 12.5 mls/hr 07/24/24 15:45 07/25/24 05:54 Zosyn IV 07/31/24 15:44 12.5 mls/hr Q8HR [facility] Administration Protocol Ibuprofen 400 mg 07/24/24 15:44 Ibuprofen Tab 400 Mg Tablet PO 08/23/24 15:43 Q8HR PRN Moderate Pain 4-7 Ketorolac Tromethamine 30 mg 07/24/24 15:44 07/24/24 16:15 Ketorolac Inj 30 Mg/Ml Vial IVP 07/29/24 15:43 30 mg Q6HR PRN Administration severe pain 8-10 Morphine Sulfate 1 mg 07/24/24 21:21 07/25/24 04:24 Morphine Sulf Inj 10 Mg/Ml Vial IVP 07/29/24 21:20 1 mg Q6H PRN Administration BREAKTHROUGH PAIN (SEVERE) Ondansetron HCl 4 mg 07/24/24 15:26 Ondansetron Inj 2 Mg/Ml Inj 2 Ml IV 08/23/24 15:25 Q6H PRN NAUSEA OR VOMITING Protocol Plan 33-year-old male with past medical history of Crohn's disease presented to the ED due to right buttock pain. Will be admitted for antibiotic therapy and possible incision and drainage. General surgery Dr. Horton consulted. #Right buttock abscess #Cellulitis #Right buttock pain #History of Crohn's disease # Possible anal fistula # Marijuana abuse Patient has history of Crohn's disease and has had multiple incision and drainage procedures for right buttock abscess Patient has erythema, swelling, and fluid drainage from right buttock abscess General Surgeon, Dr. Horton consulted, will start antibiotics and will evaluate for possible incision and drainage procedure Dr. Horton states patient might need a colorectal surgeon evaluation or possible transfer from this institution however not emergent at this time CT showed Wall thickening involving the right colon with edema axial image 160 as well as the transverse and descending colon Patient refused surgical intervention at this time, recommended to have 1 discharge to follow-up with colorectal surgeon of patient's preference -On Zosyn -On doxycycline -Maintenance fluids 110 cc/h today -Pain control Tylenol, ketorolac, ibuprofen -Counseled on stopping marijuana use -General surgeon Dr. Horton consulted, appreciate recommendations Case discussed with my senior Dr. Arellano PGY-[address] Valencia Reyes MD PGY-1 Disposition: MedSurg Fluids: NS Feeding: Regular Thrombo prophylaxis: Heparin Gastric Ulcer prophylaxis: Not indicated CODE STATUS: Full code Attending Provider Attestation/Addendum I reviewed labs, imaging, EKG, home medications and prior available records. Face to face evaluation was performed by me. I have personally examined the patient and discussed assessment and plan with the IM team. I reviewed the resident note and agree with the plan with exceptions as below. Perianal abscess Crohn's disease Possible anal fistula Marijuana use Started IV Zosyn Consulted general surgery: Dr. Horton recommended to continue drainage. Fistula in the setting of colon disease is difficult to repair. Consulted GI Dr. Gabriel. IV fluids, maintenance [employer] Consultant the patient regarding the importance of stopping marijuana
[2024-07-25 11:55] VITALS: BP 108/61; PULSE 51; RESP 16; TEMP 36.2; O2SAT 99
[2024-07-25] MEDS: SODIUM CHLORIDE 0.9% 1000 ML 1,000 ML 110 ML IV (13:37)
[2024-07-25 16:00] VITALS: BP 132/79; PULSE 54; RESP 17; TEMP 36.4; O2SAT 99
[2024-07-25] MEDS: MORPHINE SULF INJ 10 MG/ML VIAL 2 MG IVP (18:02)
[2024-07-25 20:00] VITALS: BP 125/75; PULSE 51; RESP 18; TEMP 36.7; O2SAT 99
--- NOTE | 2024-07-25 21:09 | PC.NURSE ---
MD Gamino made aware that pt is refusing Vibramycin PO DT to make him having diarrhea, no new order made at this time.
--- NOTE | 2024-07-25 21:10 | ESCONSULT_ITS ---
HPI Data of Consult Requesting Physician: Tristin Birmingham MD Primary Care Provider: Jose Martin Marie PA-C Consult Narrative Reason for consult: Right buttock abscess in the setting of IBD/Crohn's History of present illness: 33 years old male presented to the hospital with right buttock pain swelling and fever He has a history of seton procedure done 3 years ago and then I&D of the abscess at creatinine at the [facility] about a year ago He has also seen Dr. Hicks in her office here CT scan of the abdomen pelvis with contrast showed nonspecific colitis involving ascending colon transverse colon and descending colon Patient has been started on IV Zosyn and abscess is draining and he has refused surgical intervention He has been on anti-TNF's such as Remicade in the past cc:: cc: Tristin Birmingham MD Review of Systems Review of Systems Systems Reviewed: All systems reviewed, normal except as documented Past Medical History Surgical History OTHER SURGICAL HX: As in the history of present illness Meds Home Medications and Allergies Home Medications ?Medication ?Instructions ?Recorded ?Confirmed ?Type No Known Home Medications 07/24/24 07/24/24 History Allergies Allergy/AdvReac Type Severity Reaction Status Date / Time No Known Allergies Allergy Verified 07/24/24 16:28 Exam Vital Signs Temp Pulse Resp BP Pulse Ox O2 Del Method 97.5 F 54 L 17 132/79 H 99 Room Air 07/25/24 16:00 07/25/24 16:00 07/25/24 16:00 07/25/24 16:00 07/25/24 16:00 07/25/24 16:00 Constitutional Comments: Chronically ill-appearing Routine Respiratory Exam Comments: Normal to auscultation Routine Abdominal Exam Comments: Soft nontender Results Labs 07/25/24 05:30 07/25/24 05:30 Labs: Short CBC 07/25/24 Range/Units 05:30 WBC 4.5 (3.8-10.6) Thou/mm3 Hgb 10.4 L (13.5-16.0) g/dL Hct 32.8 L (41.0-53.0) % Plt Count 168 D (140-440) Thou/mm3 BMP 07/25/24 05:30 Sodium 139 Potassium 3.8 Chloride 107 Carbon Dioxide 23.4 BUN 11 Creatinine 0.6 Glucose 77 Calcium 8.1 L Liver Function 07/25/24 Range/Units 05:30 Total Bilirubin 0.2 L (0.3-1.2) mg/dL AST < 10 (0-34) U/L ALT 9 L (10-49) U/L Alkaline Phosphatase 44 L (46-116) U/L Albumin 3.5 D (3.5-5.0) gm/dL Assessment and Plan Additional Assessment & Plan Additional Plan: # Crohn's disease with fistula Plan Very difficult to treat this patient's with the fistulous disease Patient has been on Remicade in the past Patient may have subtherapeutic titers of the Remicade or may have developed antibodies against Remicade And we may have to change the drug Remicade levels Remicade antibody levels Patient to follow-up with his microstrategy architect developer in [place] for further evaluation
[2024-07-26] VITALS: BP 119/67; PULSE 53; RESP 18; TEMP 36.4; O2SAT 99
[2024-07-26] MEDS: MORPHINE SULF INJ 10 MG/ML VIAL 2 MG IVP ×4 (00:03→20:38)
[2024-07-26 04:00] VITALS: BP 119/64; PULSE 53; RESP 18; TEMP 36.6; O2SAT 99
[2024-07-26] MEDS: PIPER/TAZO 3.375 GM 50 ML IV ×3 (05:11→22:04)
[2024-07-26 05:34] LABS: Misc Send Out* See Sep Rpt
[2024-07-26 05:42] LABS: Basophils % (Auto) 0 % (0-2.5); Eosinophils # (Auto) 0.1 Thou/mm3 (0.0-0.5); Eosinophils % (Auto) 1 % (0-10); Hematocrit 32.5 % (41.0-53.0); Hemoglobin 10.6 g/dL (13.5-16.0); Immature Granulocytes % (Auto) 0 % (0-0); Immature Granulocytes Auto 0.01 Thou/mm3 (0.00-0.00); Lymphocytes # (Auto) 1.7 Thou/mm3 (1.0-4.8); Lymphocytes % (Auto) 31 % (10-50); Mean Corpuscular HGB Conc 32.6 g/dl (31.0-37.0); Mean Corpuscular Hemoglobin 24.9 pg (25.0-35.0); Mean Corpuscular Volume 76 fL (80-100); Monocytes # (Auto) 0.4 Thou/mm3 (0.0-0.8); Monocytes % (Auto) 8 % (0-12); Neutrophils # (Auto) 3.3 Thou/mm3 (1.8-7.7); Neutrophils % (Auto) 61 % (37-80); Nucleated Red Blood Cell % 0 /100 WBC (0); Platelet Count 199 Thou/mm3 (140-440); RDW Standard Deviation 41.8 fL (35.1-43.9); Red Blood Count 4.26 Miln/mm3 (4.50-5.90); White Blood Count 5.4 Thou/mm3 (3.8-10.6)
[2024-07-26 06:26] LABS: Alanine Aminotransferase 8 U/L (10-49); Albumin, Serum 3.7 gm/dL (3.5-5.0); Albumin/Globulin Ratio 1.2 (1.2-2.2); Alkaline Phosphatase 46 U/L (46-116); Anion Gap 8 (7-16); Aspartate Amino Transferase 10 U/L (0-34); BUN/Creatinine Ratio 9 Ratio (12-20); Bilirubin,Total 0.4 mg/dL (0.3-1.2); Blood Urea Nitrogen 6 mg/dL (9-23); Calcium 8.7 mg/dL (8.3-10.6); Calcium (Corrected) 8.9 mg/dL (8.5-10.1); Carbon Dioxide 24.9 mMol/L (20.0-31.0); Chloride 105 mMol/L (98-107); Creatinine (Component) 0.7 mg/dL (0.6-1.3); Estimated Creatinine Clearance 140.5 mL/min (>60); Globulin 3.2 gm/dL (2.3-3.5); Glucose 76 mg/dL (74-106); Magnesium 1.7 mg/dL (1.6-2.6); Osmolality,Calculated 272 (275-295); Potassium 3.5 mMol/L (3.4-5.1); Sodium 138 mMol/L (136-145); Total Protein 6.9 gm/dL (5.7-8.2); eGFR > 60 See Note
[2024-07-26 08:00] VITALS: BP 140/82; PULSE 53; RESP 18; TEMP 36.4; O2SAT 100
--- NOTE | 2024-07-26 11:34 | PC.SS ---
Late note 07-25-24: SS met with patient regarding his d/c plan. Pt is alert/oriented. Pt was admitted for Right Buttock Abcess. Patient's correct address is: [address] [facility] [address]. Patient's contact information is correct on facesheet. Pt resides with girlfriend. Pt ambulates independently without assistance or DME. Pt is ok with all ADLs. Patient?s pharmacy of choice is [facility]. Pt named his father, Fredi Mcmanus medical decision maker if he is unable. Patient?s choice is to return home upon d/c. Pt does not have an advance directive, SS offered, and pt declined. Pt states not diabetic and is not on dialysis. Pt states he followed up appointment with PCP (phone appointment) 2 weeks ago. D/C plan: Return home Next of Kin: Fredi Mcmanus, father, phone# [phone] PCP: Dr. Jose Martin Marie from [facility] in [place] Address: [address] [facility] [address]
[2024-07-26 12:00] VITALS: BP 142/88; PULSE 50; RESP 17; TEMP 36.2; O2SAT 99
--- NOTE | 2024-07-26 14:36 | ESPR_ITS ---
Documentation for date of: 07/26/24 Subjective Subjective Interval history: Patient seen today at the bedside found awake, alert, x 3. Overnight events reported. States abscess continues to drain fluid. Vital signs stable at this time. Labs unremarkable this time. GI was consulted for uncontrolled Crohn's disease. Patient to follow-up with his park worker supervisor in [place] for further evaluation. Anticipate discharge in the next 24 to 48 hours. Exam Vital Signs Temp Pulse Resp BP Pulse Ox O2 Del Method 97.1 F 50 L 17 142/88 H 99 Room Air 07/26/24 12:00 07/26/24 12:00 07/26/24 12:00 07/26/24 12:00 07/26/24 12:00 07/26/24 12:00 Narrative Exam Physical Exam GENERAL: NAD, AAOx3 HEENT: Moist mucosa. Eyes open, symmetrical, & clear CARDIO: Heart RRR, no obvious murmurs PULM: No noted coughing/dyspnea CTA B/L, no R/W/R GI: Abdomen soft, nondistended, no pain on palpation. BSx4, mass in the right buttock erythematous tender to touch swollen SKIN/MSK/EXT: No wounds/rashes/edema/amputations, no pain on palpation. Pedal pulses present B/L NEURO: AAOx3, no focal neuro deficits, able to move all 4 extremities Objective Labs 07/27/24 04:51 07/27/24 04:51 Labs: Laboratory Results - last 24 hr 07/26/24 04:24 WBC 5.4 RBC 4.26 L Hgb 10.6 L Hct 32.5 L MCV 76 L MCH 24.9 L MCHC 32.6 RDW Std Deviation 41.8 Plt Count 199 D Neut % (Auto) 61 Lymph % (Auto) 31 [place] % (Auto) 8 Eos % (Auto) 1 Baso % (Auto) 0 Neut # (Auto) 3.3 Lymph # (Auto) 1.7 [place] # (Auto) 0.4 Eos # (Auto) 0.1 Baso # (Auto) 0.0 Immature Gran # (Auto) 0.01 H Absolute Nucleated RBC 0.00 Immature Gran % 0 Nucleated RBC % 0 Sodium 138 Potassium 3.5 Chloride 105 Carbon Dioxide 24.9 Anion Gap 8 BUN 6 L Creatinine 0.7 Estim Creat Clear Calc 140.5 eGFR > 60 BUN/Creatinine Ratio 9 L Glucose 76 Calculated Osmolality 272 L Calcium 8.7 Corrected Calcium 8.9 Magnesium 1.7 Total Bilirubin 0.4 AST 10 ALT 8 L Alkaline Phosphatase 46 Total Protein 6.9 Albumin 3.7 Globulin 3.2 Albumin/Globulin Ratio 1.2 Misc Test Result Cancelled Quality Measures Quality Measures none Assessment & Plan Assessment Current Active Medications: Generic Name Dose Route Start Last Admin Trade Name Freq PRN Reason Stop Dose Admin Acetaminophen 650 mg 07/24/24 15:26 Acetaminophen 325 Mg Tablet PO 08/23/24 15:25 Q6H PRN Fever >100.5 Acetaminophen 650 mg 07/24/24 15:26 Acetaminophen 325 Mg Tablet PO 08/23/24 15:25 Q6H PRN PAIN SCALE 1-3 (mild Hydrocodone Bitart/Acetaminophen 1 tab 07/25/24 14:28 Hydrocodone/Apap 5/325 Tablet PO 07/30/24 14:27 Q6HR PRN Moderate Pain 4-7 Doxycycline Hyclate 100 mg 07/24/24 21:00 07/26/24 08:03 Doxycycline 100 Mg Tablet PO 07/31/24 20:59 Not Given BID ISSA Heparin Sodium (Porcine) 5,000 unit 07/24/24 22:00 07/26/24 14:13 Heparin Sod Inj 5000 Unit/Ml Vial SC 08/07/24 21:59 Not Given Q8HR ISSA Piperacillin/Tazobactam/Dextrose 50 mls @ 12.5 mls/hr 07/24/24 15:45 07/26/24 14:21 Zosyn IV 07/31/24 15:44 12.5 mls/hr Q8HR ISSA Administration Protocol Morphine Sulfate 2 mg 07/25/24 14:27 07/26/24 14:22 Morphine Sulf Inj 10 Mg/Ml Vial IVP 07/29/24 21:20 2 mg Q6H PRN Administration PAIN SCALE 8-10(SEVERE) Ondansetron HCl 4 mg 07/24/24 15:26 Ondansetron Inj 2 Mg/Ml Inj 2 Ml IV 08/23/24 15:25 Q6H PRN NAUSEA OR VOMITING Protocol Plan 33-year-old male with past medical history of Crohn's disease presented to the ED due to right buttock pain. Will be admitted for antibiotic therapy and possible incision and drainage. General surgery Dr. Horton consulted. #Right buttock abscess #Cellulitis #Right buttock pain #History of Crohn's disease # Possible anal fistula # Marijuana abuse Patient has history of Crohn's disease and has had multiple incision and drainage procedures for right buttock abscess Patient has erythema, swelling, and fluid drainage from right buttock abscess General Surgeon, Dr. Horton consulted, will start antibiotics and will evaluate for possible incision and drainage procedure Dr. Horton states patient might need a colorectal surgeon evaluation or possible transfer from this institution however not emergent at this time CT showed Wall thickening involving the right colon with edema axial image 160 as well as the transverse and descending colon Patient refused surgical intervention at this time, recommended to have 1 discharge to follow-up with colorectal surgeon of patient's preference -On Zosyn -On doxycycline -Maintenance fluids 110 cc/h today -Pain control Tylenol, ketorolac, ibuprofen -Counseled on stopping marijuana use -General surgeon Dr. Horton consulted, appreciate recommendations Case discussed with my senior Dr. Arellano PGY-[address] Valencia Reyes MD PGY-1 Disposition: MedSurg Fluids: NS Feeding: Regular Thrombo prophylaxis: Heparin Gastric Ulcer prophylaxis: Not indicated CODE STATUS: Full code Attending Provider Attestation/Addendum I reviewed labs, imaging, EKG, home medications and prior available records. Face to face evaluation was performed by me. I have personally examined the patient and discussed assessment and plan with the IM team. I reviewed the resident note and agree with the plan with exceptions as below. Perianal abscess Crohn's disease Possible anal fistula Marijuana use Continue IV Zosyn Consulted general surgery: Dr. Horton recommended to continue drainage. Fistula in the setting of colon disease is difficult to repair. Consulted GI Dr. Gabriel. Follow-up with his GI specialist in [place] and his surgeon in [place] Encourage oral hydration Fur Dry Cleaner the patient regarding the importance of stopping marijuana
[2024-07-26 16:00] VITALS: BP 124/56; PULSE 48; RESP 17; TEMP 36.1; O2SAT 99
--- NOTE | 2024-07-26 19:24 | PD.IMPROG ---
Documentation for date of: 07/26/24 Subjective Subjective Interval history: Abscess continues to drain Ordered Remicade levels and also Remicade antibody titers And if the levels of Remicade are low and the antibody titers are high Remicade has to be switched to Entyvio Exam Vital Signs Temp Pulse Resp BP Pulse Ox O2 Del Method 97.0 F 48 L 17 124/56 L 99 Room Air 07/26/24 16:00 07/26/24 16:00 07/26/24 16:00 07/26/24 16:00 07/26/24 16:00 07/26/24 16:00 Objective Labs 07/26/24 04:24 07/26/24 04:24 Labs: Laboratory Results - last 24 hr 07/26/24 04:24 WBC 5.4 RBC 4.26 L Hgb 10.6 L Hct 32.5 L MCV 76 L MCH 24.9 L MCHC 32.6 RDW Std Deviation 41.8 Plt Count 199 D Neut % (Auto) 61 Lymph % (Auto) 31 [place] % (Auto) 8 Eos % (Auto) 1 Baso % (Auto) 0 Neut # (Auto) 3.3 Lymph # (Auto) 1.7 [place] # (Auto) 0.4 Eos # (Auto) 0.1 Baso # (Auto) 0.0 Immature Gran # (Auto) 0.01 H Absolute Nucleated RBC 0.00 Immature Gran % 0 Nucleated RBC % 0 Sodium 138 Potassium 3.5 Chloride 105 Carbon Dioxide 24.9 Anion Gap 8 BUN 6 L Creatinine 0.7 Estim Creat Clear Calc 140.5 eGFR > 60 BUN/Creatinine Ratio 9 L Glucose 76 Calculated Osmolality 272 L Calcium 8.7 Corrected Calcium 8.9 Magnesium 1.7 Total Bilirubin 0.4 AST 10 ALT 8 L Alkaline Phosphatase 46 Total Protein 6.9 Albumin 3.7 Globulin 3.2 Albumin/Globulin Ratio 1.2 Misc Test Result Cancelled Impressions Impression: # Crohn's disease with fistula and abscess Continue current management Assessment & Plan A&P Narrative # Crohn's disease with fistula Plan Very difficult to treat this patient's with the fistulous disease Patient has been on Remicade in the past Patient may have subtherapeutic titers of the Remicade or may have developed antibodies against Remicade And we may have to change the drug Remicade levels Remicade antibody levels Patient to follow-up with his online advertising analyst in [place] for further evaluation Time Spent With Patient Time: Total time spent is greater than 50% in coordination of care (as documented) at patient's floor/unit and/or counseling patient:
[2024-07-26 20:00] VITALS: BP 121/71; PULSE 60; RESP 17; TEMP 36.1; O2SAT 99
[2024-07-27] VITALS: BP 133/77; PULSE 51; RESP 16; TEMP 36.2; O2SAT 100
[2024-07-27] MEDS: MORPHINE SULF INJ 10 MG/ML VIAL 2 MG IVP ×2 (02:52→09:04)
[2024-07-27 04:00] VITALS: BP 128/79; PULSE 63; RESP 17; TEMP 36.5; O2SAT 98
[2024-07-27] MEDS: PIPER/TAZO 3.375 GM 50 ML IV (05:16)
[2024-07-27 06:30] LABS: Basophils % (Auto) 0 % (0-2.5); Eosinophils # (Auto) 0.1 Thou/mm3 (0.0-0.5); Eosinophils % (Auto) 1 % (0-10); Hematocrit 35.5 % (41.0-53.0); Hemoglobin 11.4 g/dL (13.5-16.0); Immature Granulocytes % (Auto) 0 % (0-0); Immature Granulocytes Auto 0.01 Thou/mm3 (0.00-0.00); Lymphocytes # (Auto) 1.5 Thou/mm3 (1.0-4.8); Lymphocytes % (Auto) 27 % (10-50); Mean Corpuscular HGB Conc 32.1 g/dl (31.0-37.0); Mean Corpuscular Hemoglobin 24.8 pg (25.0-35.0); Mean Corpuscular Volume 77 fL (80-100); Monocytes # (Auto) 0.5 Thou/mm3 (0.0-0.8); Monocytes % (Auto) 9 % (0-12); Neutrophils # (Auto) 3.6 Thou/mm3 (1.8-7.7); Neutrophils % (Auto) 63 % (37-80); Nucleated Red Blood Cell % 0 /100 WBC (0); Platelet Count 242 Thou/mm3 (140-440); Red Blood Count 4.59 Miln/mm3 (4.50-5.90); White Blood Count 5.7 Thou/mm3 (3.8-10.6)
[2024-07-27 07:21] LABS: Alanine Aminotransferase 8 U/L (10-49); Albumin, Serum 4.1 gm/dL (3.5-5.0); Albumin/Globulin Ratio 1.2 (1.2-2.2); Alkaline Phosphatase 49 U/L (46-116); Anion Gap 8 (7-16); Aspartate Amino Transferase < 10 U/L (0-34); BUN/Creatinine Ratio 16 Ratio (12-20); Bilirubin,Total 0.4 mg/dL (0.3-1.2); Blood Urea Nitrogen 11 mg/dL (9-23); Calcium 9.2 mg/dL (8.3-10.6); Calcium (Corrected) 9.2 mg/dL (8.5-10.1); Carbon Dioxide 26.9 mMol/L (20.0-31.0); Chloride 104 mMol/L (98-107); Creatinine (Component) 0.7 mg/dL (0.6-1.3); Estimated Creatinine Clearance 140.5 mL/min (>60); Globulin 3.3 gm/dL (2.3-3.5); Glucose 75 mg/dL (74-106); Magnesium 1.7 mg/dL (1.6-2.6); Osmolality,Calculated 275 (275-295); Potassium 3.5 mMol/L (3.4-5.1); Sodium 139 mMol/L (136-145); Total Protein 7.4 gm/dL (5.7-8.2); eGFR > 60 See Note
[2024-07-27 07:48] VITALS: BP 129/73; PULSE 84; RESP 17; TEMP 36.5; O2SAT 98
[2024-07-27 11:05] VITALS: BMI 19.9
--- NOTE | 2024-07-27 11:27 | PD.RESDS ---
Planned Discharge Date 07/27/24 DS: Providers Provider Date of admission: 07/24/24 15:26 Primary care physician: Jose Martin Marie PA-C Admitting Provider: Tristin Birmingham MD Attending Provider on Admission: Tristin Birmingham MD Consults: 07/24/24 14:14 Consult to General Surgery Stat Comment: Rectal abscess with fistula Consulting Provider: Aung Wiley 07/25/24 11:01 Consult to Gastroenterology Stat Comment: uncontrolled chrons disease Consulting Provider: Kd Gabriel Attending Provider on DC: Tristin Birmingham MD Discharging Provider: Wero Reyes MD Anticipated date of discharge: 07/27/24 DS: Diagnosis Problem List Completed Was Problem List Reviewed/Reconciled?: Yes Hospital Course Hospital Course Hospital course: 33-year-old male with past medical history of Crohn's disease presented to the ED due to right buttock pain. Will be admitted for antibiotic therapy and possible incision and drainage. General surgery Dr. Horton consulted. During hospital stay general surgery was consulted recommended to see a colorectal surgeon as patient has a perianal fistula. Was evaluated by colorectal surgeon here however patient did not want any surgical intervention. Was treated with IV antibiotics. Was allowed abscess to drain fluid. Patient was also recommended to follow-up with clinical administrative coordinator for treatment of Crohn's disease. Patient has history of marijuana abuse was counseled on cessation of said substance. At this time patient is medically stable for discharge. Recommended to follow up with primary care physician within 1 week of discharge. Recommended to follow up with general surgery of patients preference for evaluation of pako-anal abcess. Recommended to follow up with your Wood Drill Operator in [place]. Recommend to continue ciprofloxacin and Flagyl for 2 weeks. Problem list: #Right buttock abscess #Cellulitis #Right buttock pain #History of Crohn's disease # Possible anal fistula # Marijuana abuse Case discussed with my attending Dr. Valencia Reyes MD PGY-1 Status at Discharge Functional status at discharge: independent ambulation Overall status at discharge: patient is back to baseline Time Spent with Patient Time attestation: Total time spent providing and/or coordinating discharge services: Time spent: Greater than 30 minutes Exam Vital Signs Temp Pulse Resp BP Pulse Ox O2 Del Method 97.7 F 84 17 129/73 98 Room Air 07/27/24 07:48 07/27/24 07:48 07/27/24 07:48 07/27/24 07:48 07/27/24 07:48 07/27/24 07:48 Narrative Exam Physical Exam GENERAL: NAD, AAOx3 HEENT: Moist mucosa. Eyes open, symmetrical, & clear CARDIO: Heart RRR, no obvious murmurs PULM: No noted coughing/dyspnea CTA B/L, no R/W/R GI: Abdomen soft, nondistended, no pain on palpation. BSx4, mass in the right buttock erythematous tender to touch swollen SKIN/MSK/EXT: No wounds/rashes/edema/amputations, no pain on palpation. Pedal pulses present B/L NEURO: AAOx3, no focal neuro deficits, able to move all 4 extremities Discharge Plan Plan Patient Disposition: HOME (Self Care) Care Plan Goals: Recommended to follow up with primary care physician within 1 week of discharge Recommended to follow up with general surgery of patients preference for evaluation of pako-anal abcess Recommended to follow up with your Wood Drill Operator in [place] Recommend to continue ciprofloxacin and Flagyl for 2 weeks. Prescriptions/Referrals Prescriptions/Med Rec: New ciprofloxacin HCl 500 mg tablet 500 mg PO BID 14 Days Qty: 28 0RF metronidazole 500 mg tablet 500 mg PO TID 14 Days Qty: 42 0RF Referrals: Jose Martin Marie PA-C [Primary Care Provider] - Patient/Caregiver Discharge Instructions Print Language: Portuguese Stand Alone Forms: [employer] Award Info., Patient Portal Info Letter Discharge Order Discharge Orders: Discharge (Routine); Ordered 07/27/24 Ordered By: Wero Reyes Quality Discharge Quality Measures VTE prophylaxis MD Attestestation MD Attestation I reviewed labs, imaging, EKG, home medications and prior available records. Face to face evaluation was performed by me. I have personally examined the patient and discussed assessment and plan with the IM team. I reviewed the resident note and agree with the plan with exceptions as below. Perianal abscess Crohn's disease Possible anal fistula Marijuana use Will discharge on ciprofloxacin/Flagyl Consulted general surgery: Dr. Horton recommended to continue drainage. Fistula in the setting of colon disease is difficult to repair. Consulted GI Dr. Gabriel. Follow-up with his GI specialist in [place] and his surgeon in [place] Encourage oral hydration Management Supervisor the patient regarding the importance of stopping marijuana Time spent is 40 minutes. More than 50% of the time was spent on patient education and coordination of care.
--- NOTE | 2024-07-27 16:29 | PC.SS ---
SS sent wound referral to Wound Clinic.
--- NOTE | 2024-07-27 16:56 | ESPR_ITS ---
Documentation for date of: 07/27/24 Subjective Subjective Interval history: Late entry for the dose Case discussed with the internal medicine team Patient can be discharged home to be followed by his freight loading supervisor in [place] Exam Vital Signs Temp Pulse Resp BP Pulse Ox O2 Del Method 97.7 F 84 17 129/73 98 Room Air 07/27/24 07:48 07/27/24 07:48 07/27/24 07:48 07/27/24 07:48 07/27/24 07:48 07/27/24 07:48 Objective Labs 07/27/24 04:51 07/27/24 04:51 Labs: Laboratory Results - last 24 hr 07/27/24 04:51 WBC 5.7 RBC 4.59 Hgb 11.4 L Hct 35.5 L MCV 77 L MCH 24.8 L MCHC 32.1 RDW Std Deviation 42.0 Plt Count 242 D Neut % (Auto) 63 Lymph % (Auto) 27 [place] % (Auto) 9 Eos % (Auto) 1 Baso % (Auto) 0 Neut # (Auto) 3.6 Lymph # (Auto) 1.5 [place] # (Auto) 0.5 Eos # (Auto) 0.1 Baso # (Auto) 0.0 Immature Gran # (Auto) 0.01 H Absolute Nucleated RBC 0.00 Immature Gran % 0 Nucleated RBC % 0 Sodium 139 Potassium 3.5 Chloride 104 Carbon Dioxide 26.9 Anion Gap 8 BUN 11 Creatinine 0.7 Estim Creat Clear Calc 140.5 eGFR > 60 BUN/Creatinine Ratio 16 Glucose 75 Calculated Osmolality 275 Calcium 9.2 Corrected Calcium 9.2 Magnesium 1.7 Total Bilirubin 0.4 AST < 10 ALT 8 L Alkaline Phosphatase 49 Total Protein 7.4 Albumin 4.1 Globulin 3.3 Albumin/Globulin Ratio 1.2 Impressions Impression: # Crohn disease with fistula and right buttock abscess Patient to follow-up upon discharge with his freight loading supervisor in [place] Assessment & Plan A&P Narrative # Crohn's disease with fistula Plan Very difficult to treat this patient's with the fistulous disease Patient has been on Remicade in the past Patient may have subtherapeutic titers of the Remicade or may have developed antibodies against Remicade And we may have to change the drug Remicade levels Remicade antibody levels Patient to follow-up with his freight loading supervisor in [place] for further evaluation Time Spent With Patient Time: Total time spent is greater than 50% in coordination of care (as documented) at patient's floor/unit and/or counseling patient:
== END 2024-07-27 12:34 | disposition home or self-care (01) | DRG 383 ==
LOC: SERX 14:50 → SERHOLD 16:58 → S3SX 20:22
PROVIDERS: Specialist; Student in an Organized Health Care Education/Training Program; Admitting Provider Student in an Organized Health Care Education/Training Program; Emergency Provider Emergency Medicine; PCP Physician Assistant; Visit Provider Student in an Organized Health Care Education/Training Program
DX: L02.31 Cutaneous abscess of buttock (principal); R16.0 Hepatomegaly, not elsewhere classified; F12.10 Cannabis abuse, uncomplicated; K50.914 Crohn's disease, unspecified, with abscess; K50.913 Crohn's disease, unspecified, with fistula
CPT/HCPCS: 36415; 74177; 80053; 80061; 80307; 81001; 82150; 83605; 83690; 83735; 84145; 84443; 85025; 85652; 86140; 87040; 87070; 87077; 87186; 87205; 96365; 96366; 96367; 96375; 96376; 99285; A4649; J1885; J2270; J2405; J2543; J3490; J7030; J7050; Q9967; A9270

== ENCOUNTER 2024-10-27 05:24 | Emergency (ER) | payer MEDICAID, SELFPAY ==
[2024-10-27 05:25] VITALS: BMI 18.7
[2024-10-27 05:31] VITALS: BP 126/73; PULSE 86; RESP 18; TEMP 35.5; O2SAT 98
--- NOTE | 2024-10-27 05:36 | PD.EDRME ---
Rapid Medical Screening Exam RME Arrival date/time: 10/27/24 05:24 33 yo m present to ED for c/o of perianal abscess I have greeted and performed a focused initial assessment of this patient. A comprehensive ED assessment and evaluation of the patient, analysis of all test results, and completion of the medical decision making process will be conducted by additional ED providers. Chief Complaint: Wound/Laceration Vital signs: Vital Signs Temperature 96 F L 10/27/24 05:31 Pulse Rate 86 10/27/24 05:31 Respiratory Rate 18 10/27/24 05:31 Blood Pressure 126/73 10/27/24 05:31 Pulse Oximetry (%) 98 10/27/24 05:31 Oxygen Delivery Method Room Air 10/27/24 05:31
--- NOTE | 2024-10-27 05:37 | XR_ITS ---
Examination: CT abdomen with intravenous contrast. CT pelvis with intravenous contrast. 2-D sagittal and coronal reconstructions. Date and time of exam: 10/27/2024 10:00 AM Indication: Rectal pain CTDI: vol (mGy) 10.4 DLP: (mGycm) 389 Comparison 07/24/2024 Technique: Axial sections of the abdomen and pelvis have been obtained post contrast intravenous injection 3 mm slice thickness. 2-D coronal and sagittal reconstructions were obtained. Low dose protocols were performed. One or more of the following dose reduction techniques were used; automated exposure control, adjustment of the mA and/or KV according to patient size, use of iterative reconstruction technique. Intravenous injection 60 mls of Isovue-370 Findings: Incidental images of the lung bases demonstrates that they are clear. There are no basilar infiltrates or pleural effusions. The heart size is normal. Imaging through the upper abdomen demonstrates a normal-appearing liver, spleen, gallbladder and stomach. Pancreatic duct remains dilated at 5 mm. No pancreatic masses seen. The adrenal glands are unremarkable. Both kidneys are normal with respect to size shape and position. There is no evidence of a renal mass, nephrolithiasis or hydronephrosis. The abdominal aorta is unremarkable. There is no periaortic lymphadenopathy. The small bowel loops have a normal contour. Diffuse mucosal thickening throughout the colon. Multiple sigmoid diverticula. Postoperative changes in the rectum with multiple radiopaque sutures and inflammatory changes. No focal mass or fluid collection Appendix is not definitively visualized. The urinary bladder is not distended and appears entirely normal. The prostate is not enlarged. There is no evidence of an abdominal wall hernia. The osseous structures appear intact. Impression: Diffuse mucosal thickening throughout the colon consistent with inflammation/infection. Postoperative changes in the rectum with multiple radiopaque sutures and inflammatory changes. No focal mass or fluid collection. Sigmoid diverticulosis
[2024-10-27] MEDS: HYDROcodone/APAP 10/325 TAB PO (06:14)
[2024-10-27 06:32] LABS: Lactate (Lactic Acid) 1.3 mMol/L (0.4-2.0)
[2024-10-27 06:33] LABS: Basophils # (Auto) 0.1 Thou/mm3 (0.0-0.2); Basophils % (Auto) 0 % (0-2.5); Eosinophils # (Auto) 0.1 Thou/mm3 (0.0-0.5); Eosinophils % (Auto) 1 % (0-10); Hematocrit 39.5 % (41.0-53.0); Hemoglobin 12.4 g/dL (13.5-16.0); Immature Granulocytes % (Auto) 1 % (0-0); Immature Granulocytes Auto 0.06 Thou/mm3 (0.00-0.00); Lymphocytes # (Auto) 1.4 Thou/mm3 (1.0-4.8); Lymphocytes % (Auto) 12 % (10-50); Mean Corpuscular HGB Conc 31.4 g/dl (31.0-37.0); Mean Corpuscular Hemoglobin 24.7 pg (25.0-35.0); Mean Corpuscular Volume 79 fL (80-100); Monocytes # (Auto) 0.5 Thou/mm3 (0.0-0.8); Monocytes % (Auto) 4 % (0-12); Neutrophils # (Auto) 9.9 Thou/mm3 (1.8-7.7); Neutrophils % (Auto) 82 % (37-80); Nucleated Red Blood Cell % 0 /100 WBC (0); Platelet Count 413 Thou/mm3 (140-440); Red Blood Count 5.02 Miln/mm3 (4.50-5.90); White Blood Count 12.1 Thou/mm3 (3.8-10.6)
[2024-10-27 06:58] LABS: Albumin, Serum 4.1 gm/dL (3.5-5.0); Albumin/Globulin Ratio 1.1 (1.2-2.2); Alkaline Phosphatase 50 U/L (46-116); Anion Gap 10 (7-16); BUN/Creatinine Ratio 11 Ratio (12-20); Bilirubin,Total 0.4 mg/dL (0.3-1.2); Blood Urea Nitrogen 11 mg/dL (9-23); Calcium 9.3 mg/dL (8.3-10.6); Calcium (Corrected) 9.3 mg/dL (8.5-10.1); Carbon Dioxide 27.1 mMol/L (20.0-31.0); Chloride 103 mMol/L (98-107); Estimated Creatinine Clearance 100.2 mL/min (>60); Globulin 3.9 gm/dL (2.3-3.5); Glucose 97 mg/dL (74-106); Osmolality,Calculated 278 (275-295); Potassium 3.5 mMol/L (3.4-5.1); Sodium 140 mMol/L (136-145); eGFR > 60 See Note
[2024-10-27 07:05] LABS: Alanine Aminotransferase < 7 U/L (10-49); Aspartate Amino Transferase < 8 U/L (0-34); Procalcitonin 0.08 ng/ml (0.0-0.49)
[2024-10-27 07:36] VITALS: BP 131/78; PULSE 62; RESP 17; TEMP 36.7; O2SAT 100
[2024-10-27 09:05] VITALS: BP 133/77; PULSE 66; RESP 19; TEMP 36.7; O2SAT 96
[2024-10-27] MEDS: ONDANSETRON INJ 2 MG/ML INJ 2 ML 4 MG IV ×2 (09:05→12:27)
[2024-10-27] MEDS: MORPHINE SULF INJ 10 MG/ML VIAL 5 MG IVP ×2 (09:06→12:29)
--- NOTE | 2024-10-27 10:35 | PD.EDADULT ---
ED General RME/HPI General Chief complaint: Wound/Laceration Stated complaint: ABSCESS TO RIGHT BUTTOCK Time Seen by Provider: 10/27/24 08:15 Arrival date/time: 10/27/24 05:24 RME / HPI RME / HPI narrative: 10/27/24 05:24 33 yo m present to ED for c/o of perianal abscess I have greeted and performed a focused initial assessment of this patient. A comprehensive ED assessment and evaluation of the patient, analysis of all test results, and completion of the medical decision making process will be conducted by additional ED providers. DR. BILLINGS MAIN ED EVALUATION: 33 year old male with past medical history significant for Crohn's disease diagnosed in 2008 and perianal fistula at [facility] presents to the Emergency Department with complaint of buttock pain, at the site of the fistula; he also has some drainage of the fistula. He states he thinks he has an abscess and he cannot sit down at all due to the pain. He also mentions it is really painful to have a bowel movement. Related Data Previous Rx's ?Medication ?Instructions ?Recorded ciprofloxacin HCl 500 mg tablet 500 mg PO BID #20 tabs 10/27/24 (Cipro) methylprednisolone 4 mg tablets in 4 mg PO QAM #21 tabs 10/27/24 a dose pack (Medrol (Da)) metronidazole 500 mg tablet 500 mg PO TID #21 tabs 10/27/24 Allergies Allergy/AdvReac Type Severity Reaction Status Date / Time No Known Allergies Allergy Verified 07/24/24 16:28 Review of Systems Review of Systems Systems Reviewed: All systems reviewed, normal except as documented Past Medical History Past Medical History Comments [facility] COMMENT: Crohn's disease diagnosed in 2008 and perianal fistula at [facility] ED Exam Narrative Physical exam: GENERAL APPEARANCE: alert and oriented x 4, well-developed, well-nourished, no acute distress VITALS: All vitals were reviewed and the pulse ox is 96% on room air, which is normal according to my interpretation. HEENT: Normocephalic, atraumatic; pupils equal, round, reactive to light; EOMI; mucous membranes pink, moist; oropharynx clear NECK: Supple LUNGS: CTABL; no wheezes, no rales, no rhonchi HEART: Regular rate, regular rhythm; normal S1, S2; no murmurs ABDOMEN: non distended; normal BS; soft, no tenderness, no guarding, no rebound; no masses, no organomegaly, no hernia RECTAL: There is a perianal fistula in place with drainage and setons surrounding. BACK: no CVA tenderness EXTREMITIES: atraumatic; no edema NEUROLOGIC: awake; alert and oriented x4; cranial nerves II-XII grossly intact; no focal sensory or motor deficits PSYCHIATRIC: appropriate mood and affect SKIN: warm, dry, normal color; no rashes Course Quality Measures none Orders Category Date Time Status CT Screening NOW Care 10/27/24 05:37 Active IV [Insert IV] STAT Care 10/27/24 05:[address] abdomen pelvis w con Stat Exams 10/27/24 05:37 Completed Blood Culture (Lab) Stat Lab 10/27/24 06:25 Received CBC Stat Lab 10/27/24 06:15 Completed CMP [Comprehensive Metabolic Panel] Stat Lab 10/27/24 06:15 Completed Lactic Acid [Lactate (Lactic Acid)] Stat Lab 10/27/24 06:15 Completed Procalcitonin Stat Lab 10/27/24 06:15 Completed HYDROcodone/APAP 10/325 [[place] 10/325] Med 10/27/24 05:37 Discontinued 1 tab PO X1 ONE MethylPREDNISolone.* [SoluMEDROL Inj] Med 10/27/24 13:04 Discontinued 125 mg IVP X1 ONE Morphine Inj Med 10/27/24 08:58 Discontinued 5 mg IVP X1 ONE Morphine Inj Med 10/27/24 11:59 Discontinued 5 mg IVP X1 ONE Ondansetron Inj [Zofran Inj] Med 10/27/24 08:58 Discontinued 4 mg IV X1 ONE Ondansetron Inj [Zofran Inj] Med 10/27/24 11:59 Discontinued 4 mg IV X1 ONE Piper/Tazo 3.375 gm Premix [Zosyn] Med 10/27/24 11:59 Discontinued 3.375 gm in 50 ml IV X1 Vital Signs Vital signs: Vital Signs Temperature 96 F L 10/27/24 05:31 Pulse Rate 86 10/27/24 05:31 Respiratory Rate 18 10/27/24 05:31 Blood Pressure 126/73 10/27/24 05:31 Pulse Oximetry (%) 98 10/27/24 05:31 Oxygen Delivery Method Room Air 10/27/24 05:31 [facility] Patient data External records reviewed:: [facility] previous records (Reviewed last admission discharge dated 07/27/24, patient admitted for the following: Perianal abscess) Clinical information provided by:: patient Social determinants that could affect healthcare access:: substance use (history of marijuana abuse) Patient has the following chronic illnesses:: Crohn's disease diagnosed in 2008 and perianal fistula at [facility] How is presenting disease/condition affected by chronic disease/condition?: exacerbated by Evaluation data The following diagnostics were reviewed and interpreted by me:: lab results and radiology exam(s) Lab and/or radiology exams considered but not ordered:: none Interpretation Summary: Procedure(s): CT abdomen pelvis w con Accession Number(s): [id number] cc: Darryl Puckett MD; NO PRIMARY/FAMILY,PHYSICIAN; Rudy Dejesus Examination: CT abdomen with intravenous contrast. CT pelvis with intravenous contrast. 2-D sagittal and coronal reconstructions. Date and time of exam: 10/27/2024 10:00 AM Indication: Rectal pain CTDI: vol (mGy) 10.4 DLP: (mGycm) 389 Comparison 07/24/2024 Technique: Axial sections of the abdomen and pelvis have been obtained post contrast intravenous injection 3 mm slice thickness. 2-D coronal and sagittal reconstructions were obtained. Low dose protocols were performed. One or more of the following dose reduction techniques were used; automated exposure control, adjustment of the mA and/or KV according to patient size, use of iterative reconstruction technique. Intravenous injection 60 mls of Isovue-370 Findings: Incidental images of the lung bases demonstrates that they are clear. There are no basilar infiltrates or pleural effusions. The heart size is normal. Imaging through the upper abdomen demonstrates a normal-appearing liver, spleen, gallbladder and stomach. Pancreatic duct remains dilated at 5 mm. No pancreatic masses seen. The adrenal glands are unremarkable. Both kidneys are normal with respect to size shape and position. There is no evidence of a renal mass, nephrolithiasis or hydronephrosis. The abdominal aorta is unremarkable. There is no periaortic lymphadenopathy. The small bowel loops have a normal contour. Diffuse mucosal thickening throughout the colon. Multiple sigmoid diverticula. Postoperative changes in the rectum with multiple radiopaque sutures and inflammatory changes. No focal mass or fluid collection Appendix is not definitively visualized. The urinary bladder is not distended and appears entirely normal. The prostate is not enlarged. There is no evidence of an abdominal wall hernia. The osseous structures appear intact. Impression: Diffuse mucosal thickening throughout the colon consistent with inflammation/infection. Postoperative changes in the rectum with multiple radiopaque sutures and inflammatory changes. No focal mass or fluid collection. Sigmoid diverticulosis Dictated By: Darryl Puckett MD Medications Medications considered but not ordered:: none Medication administrations:: Medication Administration History Discontinued Medications Hydrocodone Bitart/Acetaminophen (Hydrocodone/Apap 10/325 Tab) 1 tab PO X1 ONE Stop: 10/27/24 05:38 Last Admin: 10/27/24 06:14 Dose: 1 tab Documented By: STEVE Piperacillin/Tazobactam/Dextrose (Zosyn) 3.375 gm in 50 mls @ 100 mls/hr IV X1 ONE Stop: 10/27/24 12:28 Last Infusion: 10/27/24 13:08 Dose: Infused Documented By: Admin: 10/27/24 12:31 Dose: 100 mls/hr Documented By: MIGNON Methylprednisolone Sodium Succinate (Methylprednisolone Sod Succ 62.5 Mg/Ml 2ml Vial) 125 mg IVP X1 ONE Stop: 10/27/24 13:05 Morphine Sulfate (Morphine Sulf Inj 10 Mg/Ml Vial) 5 mg IVP X1 ONE Stop: 10/27/24 08:59 Last Admin: 10/27/24 09:06 Dose: 5 mg Documented By: MIGNON Morphine Sulfate (Morphine Sulf Inj 10 Mg/Ml Vial) 5 mg IVP X1 ONE Stop: 10/27/24 12:00 Last Admin: 10/27/24 12:29 Dose: 5 mg Documented By: MIGNON Ondansetron HCl (Ondansetron Inj 2 Mg/Ml Inj 2 Ml) 4 mg IV X1 ONE Stop: 10/27/24 08:59 Last Admin: 10/27/24 12:27 Dose: 4 mg Documented By: Admin: 10/27/24 09:05 Dose: 4 mg Documented By: MIGNON Ondansetron HCl (Ondansetron Inj 2 Mg/Ml Inj 2 Ml) 4 mg IV X1 ONE Stop: 10/27/24 12:00 Last Admin: 10/27/24 12:32 Dose: Not Given Documented By: MIGNON Non-Admin Reason: Duplicate Medication on eMAR see above Consultations Consultation(s) initiated? (list below): No Diagnosis Differential Diagnosis ED Complaint MDM: perianal abscess, perianal swelling, cellulitis Most likely diagnosis given after review of the tests above:: Chohn's disease with fistula Colitis Admission Indicated Admission indicated?: not indicated Explain why admission is indicated or not indicated:: Patient has no emergent abnormalities on his studies and can be managed on an outpatient basis. Admission Request Was there a request for admission?: No Disposition Plan Disposition Plan: Discharge Discharge Attestation Discharge Attestation: The patient and all family members were given an opportunity to ask questions and understood the discharge instructions. Discharge instructions specifically effects, indications for sooner follow up or return to the emergency department, and the expected course of current diagnosis. Patient condition: Stable Medical Decision Making MDM Narrative MDM Narrative: IJocelyn am scribing for and in the presence of Dr. Billings. Differential Diagnosis Differential Diagnosis: perianal abscess, perianal swelling, cellulitis Lab Data 10/27/24 06:15 10/27/24 06:15 Labs: Lab Results 10/27/24 Range/Units 06:15 WBC 12.1 H (3.8-10.6) Thou/mm3 RBC 5.02 (4.50-5.90) Miln/mm3 Hgb 12.4 L (13.5-16.0) g/dL Hct 39.5 L (41.0-53.0) % MCV 79 L (80-100) fL MCH 24.7 L (25.0-35.0) pg MCHC 31.4 (31.0-37.0) g/dl RDW Std Deviation 42.0 (35.1-43.9) fL Plt Count 413 (140-440) Thou/mm3 Neut % (Auto) 82 H (37-80) % Lymph % (Auto) 12 (10-50) % [place] % (Auto) 4 (0-12) % Eos % (Auto) 1 (0-10) % Baso % (Auto) 0 (0-2.5) % Neut # (Auto) 9.9 H (1.8-7.7) Thou/mm3 Lymph # (Auto) 1.4 (1.0-4.8) Thou/mm3 [place] # (Auto) 0.5 (0.0-0.8) Thou/mm3 Eos # (Auto) 0.1 (0.0-0.5) Thou/mm3 Baso # (Auto) 0.1 (0.0-0.2) Thou/mm3 Immature Gran # (Auto) 0.06 H (0.00-0.00) Thou/mm3 Absolute Nucleated RBC 0.00 (0.00-0.00) Thou/mm3 Immature Gran % 1 H (0-0) % Nucleated RBC % 0 (0) /100 WBC Sodium 140 (136-145) mMol/L Potassium 3.5 (3.4-5.1) mMol/L Chloride 103 (98-107) mMol/L Carbon Dioxide 27.1 (20.0-31.0) mMol/L Anion Gap 10 (7-16) BUN 11 (9-23) mg/dL Creatinine 1.0 (0.6-1.3) mg/dL Estim Creat Clear Calc 100.2 (>60) mL/min eGFR > 60 (60 - ) See Note BUN/Creatinine Ratio 11 L (12-20) Ratio Glucose 97 (74-106) mg/dL Calculated Osmolality 278 (275-295) Lactic Acid 1.3 (0.4-2.0) mMol/L Calcium 9.3 (8.3-10.6) mg/dL Corrected Calcium 9.3 (8.5-10.1) mg/dL Total Bilirubin 0.4 (0.3-1.2) mg/dL AST < 8 (0-34) U/L ALT < 7 L (10-49) U/L Alkaline Phosphatase 50 (46-116) U/L Total Protein 8.0 (5.7-8.2) gm/dL Albumin 4.1 (3.5-5.0) gm/dL Globulin 3.9 H (2.3-3.5) gm/dL Albumin/Globulin Ratio 1.1 L (1.2-2.2) Procalcitonin 0.08 (0.0-0.49) ng/ml Discharge Plan Plan Patient Disposition: HOME (Self Care) Prescriptions/Referrals Prescriptions/Med Rec: New methylprednisolone [Medrol (Da)] 4 mg tablets,dose pack 4 mg PO QAM Qty: 21 0RF metronidazole 500 mg tablet 500 mg PO TID Qty: 21 0RF ciprofloxacin HCl [Cipro] 500 mg tablet 500 mg PO BID Qty: 20 0RF Referrals: No Primary/Family,Physician [Primary Care Provider] - In 1 week Problem List Clinical Impression: Crohn's disease with fistula, Colitis Patient/Caregiver Discharge Instructions Education Materials: ED Crohn's Disease Print Language: Kyrgyz Stand Alone Forms: [employer] Award Info., Patient Portal Info Letter
[2024-10-27 12:21] VITALS: BP 128/77; PULSE 60; RESP 13; TEMP 36.8; O2SAT 99
[2024-10-27] MEDS: PIPER/TAZO 3.375 GM PREMIX 3.375 GM/50 ML BAG IV (12:31)
[2024-10-27] MEDS: MethylPREDNISolone SOD SUCC 62.5 MG/ML 2ML VIAL 125 MG IVP (13:27)
== END 2024-10-27 13:42 | disposition home or self-care (01) ==
PROVIDERS: Physician Assistant; Emergency Provider Emergency Medicine
DX: K50.913 Crohn's disease, unspecified, with fistula (principal); K60.30 Anal fistula, unspecified; K52.9 Noninfective gastroenteritis and colitis, unspecified; K57.30 Diverticulosis of large intestine without perforation or abscess without bleeding; F12.10 Cannabis abuse, uncomplicated
CPT/HCPCS: 36415; 74177; 80053; 83605; 84145; 85025; 87040; 96365; 96375; 96376; 99285; A4649; J2270; J2405; J2543; J2919; Q9967; A9270

== ENCOUNTER 2024-12-20 07:24 | Emergency (ER) | payer MEDICAID, SELFPAY ==
[2024-12-20] VITALS (21 sets, daily range): BP systolic 99–151; BP diastolic 75–94; PULSE 83–116; RESP 9–29; TEMP 36.4–38.1; O2SAT 87–100; BMI 19.2; BMI 19.5
--- NOTE | 2024-12-20 07:48 | XR_ITS ---
Examination: CT abdomen and pelvis without contrast. Coronal 3-D reconstructions. Sagittal 2-D reconstructions. Date and time of exam:December 20, 2024 11:25 AM Comparison October 27, 2024 INDICATIONS: Abdominal pain in the left lower abdomen and diarrhea today CTDI: vol (mGy): 5.30 DLP: (mGycm): 302 Technique: Axial images of the abdomen have been obtained, 3 mm slice thickness Intravenous contrast material has not been administered. Low dose protocols were performed. One or more of the following dose reduction techniques were used; automated exposure control, adjustment of the mA and/or KV according to patient size, use of iterative reconstruction technique. Findings: No focal liver or splenic lesions No gallstones No pancreatic mass Multiple subcentimeter right renal calculi, no hydronephrosis or ureteral calculi Aorta normal size Mildly fluid distended colon and small bowel loops Partial visualization normal appendix No diverticulitis Contracted urinary bladder No prostatomegaly Mild osteopenia IMPRESSION: Multiple nonobstructing right renal calculi, no hydronephrosis or ureteral calculi No CT findings of appendicitis Mild colonic and small bowel ileus
--- NOTE | 2024-12-20 07:49 | PD.EDRME ---
Rapid Medical Screening Exam RME Arrival date/time: 12/20/24 07:24 33-year-old male with a history of Crohn's disease presents to the emergency room with a chief complaint of vomiting, left lower quadrant abdominal pain, diarrhea x 1 day I have greeted and performed a focused initial assessment of this patient. A comprehensive ED assessment and evaluation of the patient, analysis of all test results, and completion of the medical decision making process will be conducted by additional ED providers. Chief Complaint: Nausea/Vomiting/Diarrhea Vital signs: Vital Signs Temperature 97.6 F 12/20/24 07:41 Pulse Rate 98 12/20/24 07:41 Respiratory Rate 18 12/20/24 07:41 Blood Pressure 99/75 12/20/24 07:41 Pulse Oximetry (%) 100 12/20/24 07:41 Oxygen Delivery Method Room Air 12/20/24 07:41 Vital signs reviewed by provider: Yes
[2024-12-20 08:10] LABS: Basophils # (Auto) 0.1 Thou/mm3 (0.0-0.2); Basophils % (Auto) 0 % (0-2.5); Eosinophils # (Auto) 0.1 Thou/mm3 (0.0-0.5); Eosinophils % (Auto) 0 % (0-10); Hemoglobin 14.4 g/dL (13.5-16.0); Immature Granulocytes % (Auto) 2 % (0-0); Lymphocytes # (Auto) 0.7 Thou/mm3 (1.0-4.8); Lymphocytes % (Auto) 3 % (10-50); Mean Corpuscular Hemoglobin 25.8 pg (25.0-35.0); Mean Corpuscular Volume 81 fL (80-100); Monocytes # (Auto) 1.1 Thou/mm3 (0.0-0.8); Monocytes % (Auto) 5 % (0-12); Neutrophils # (Auto) 17.8 Thou/mm3 (1.8-7.7); Neutrophils % (Auto) 89 % (37-80); Nucleated Red Blood Cell % 0 /100 WBC (0); Platelet Count 407 Thou/mm3 (140-440); RDW Standard Deviation 50.5 fL (35.1-43.9); Red Blood Count 5.58 Miln/mm3 (4.50-5.90); White Blood Count 20.1 Thou/mm3 (3.8-10.6)
[2024-12-20] MEDS: METOCLOPRAMIDE INJ 5 MG/ML VIAL 2 ML 10 MG IM (08:17)
[2024-12-20 08:23] LABS: Alanine Aminotransferase 12 U/L (10-49); Albumin, Serum 4.8 gm/dL (3.5-5.0); Albumin/Globulin Ratio 1.5 (1.2-2.2); Alkaline Phosphatase 64 U/L (46-116); Anion Gap 14 (7-16); Aspartate Amino Transferase 11 U/L (0-34); BUN/Creatinine Ratio 13 Ratio (12-20); Bilirubin,Total 0.9 mg/dL (0.3-1.2); Blood Urea Nitrogen 14 mg/dL (9-23); Calcium 9.5 mg/dL (8.3-10.6); Calcium (Corrected) 9.5 mg/dL (8.5-10.1); Carbon Dioxide 26.1 mMol/L (20.0-31.0); Chloride 101 mMol/L (98-107); Creatinine (Component) 1.1 mg/dL (0.6-1.3); Estimated Creatinine Clearance 92.5 mL/min (>60); Globulin 3.2 gm/dL (2.3-3.5); Glucose 143 mg/dL (74-106); Lipase 29 U/L (12-53); Osmolality,Calculated 283 (275-295); Potassium 3.5 mMol/L (3.4-5.1); Sodium 141 mMol/L (136-145); eGFR > 60 See Note
[2024-12-20] MEDS: ONDANSETRON ODT 4 MG TABRAP PO (08:31)
[2024-12-20] MEDS: HYDROcodone/APAP 5/325 TABLET 1 TAB PO (08:32)
[2024-12-20 15:26] LABS: Collection Type, Urine Clean Catch; Squamous Epithelial Cell,Urine 0 /hpf (0-5)
[2024-12-20 15:31] LABS: Bilirubin,Urine Negative (Negative); Blood,Urine Negative (Negative); Clarity,Urine Clear (Clear/Hazy); Color,Urine Lt-Yellow (Lt Yel-Yel); Glucose, Urine Negative (Negative); Ketones,Urine Negative (Negative); Leukocyte Esterase,Urine Negative (Negative); Nitrite,Urine Negative (Negative); Protein,Urine Negative (Neg - Trace); RBC,Urine 1 /hpf (0-3); Specific Gravity,Urine 1.012 (1.001-1.035); Urobilinogen,Urine Negative mg/dL (0.0-1.0); WBC,Urine 1 /hpf (0-5)
--- NOTE | 2024-12-20 15:56 | PD.EDADULT ---
ED General RME/HPI General Chief complaint: Nausea/Vomiting/Diarrhea Stated complaint: VOMITING Arrival date/time: 12/20/24 07:24 RME / HPI RME / HPI narrative: 12/20/24 07:24 33-year-old male with a history of Crohn's disease presents to the emergency room with a chief complaint of vomiting, left lower quadrant abdominal pain, diarrhea x 1 day I have greeted and performed a focused initial assessment of this patient. A comprehensive ED assessment and evaluation of the patient, analysis of all test results, and completion of the medical decision making process will be conducted by additional ED providers. DR. MORLEY MAIN ED EVALUATION: 33 year old male with past medical history significant for Crohn's disease for 12 years presents to the Emergency Department with complaints of nausea, vomiting, diarrhea, and abdominal pain. Onset of symptoms midnight, 12 AM. Patient states he is having a Crohn's flare up and last seen his doctor was a month ago. PCP is Dr. Jose Martin Marie at [facility]. No other symptoms reported at this time. Related Data Previous Rx's ?Medication ?Instructions ?Recorded ciprofloxacin HCl 500 mg tablet 500 mg PO BID #20 tabs 10/27/24 (Cipro) hydrocodone 5 mg-acetaminophen 325 1 tab PO Q6H PRN pain #14 tabs 10/27/24 mg tablet methylprednisolone 4 mg tablets in 4 mg PO QAM #21 tabs 10/27/24 a dose pack (Medrol (Da)) metronidazole 500 mg tablet 500 mg PO TID #21 tabs 10/27/24 prednisone 5 mg tablet 15 mg PO BID #60 tabs 12/20/24 Allergies Allergy/AdvReac Type Severity Reaction Status Date / Time No Known Allergies Allergy Verified 12/20/24 07:27 Review of Systems Review of Systems Systems Reviewed: All systems reviewed, normal except as documented Narrative Review of Systems: Constitutional: DENIES: fevers; Eyes: DENIES: loss of vision; Head/Ear/Nose: DENIES: loss of hearing. Throat: DENIES: dysphagia. Cardiovascular: DENIES: chest pain, dyspnea, or syncope. Respiratory: DENIES: shortness of breath; Gastrointestinal: POSITIVES: nausea, vomiting, diarrhea, and abdominal pain; DENIES: rectal bleeding or melena. Genitourinary: DENIES: dysuria (painful or difficult urination); Musculoskeletal: DENIES: arthralgia (pain in a joint); Skin: DENIES: rash; Neurological: DENIES: loss of function or movement; Psychiatric: DENIES: recent major life stressor, emotional problem, illicit drug use or abuse; Endocrinology: DENIES: weight change,; Hematologic/Lymphatic: DENIES: abnormal bruising. Allergic/Immunologic: DENIES: urticaria (hives). Past Medical History Past Medical History GASTROINTESTINAL: Positive Gastrointestinal Disorders and Crohn's Disease Social History SMOKING STATUS: Never smoker SUBSTANCE USE: does not use ALCOHOL: Never ED Exam Narrative Physical exam: Physical Exam:? General:?? ? The vital signs were reviewed. ? ? The patient is non-toxic, in no apparent distress and appears healthy with a patent airway, no respiratory distress and has no apparent circulatory problems. Head & Scalp:?? ? Normocephalic, atraumatic. Face:?? ? Appears normal and is without lesions, deformity. Ears:??? Left external pinna appears normal. ? ? Right external pinna appears normal. Eyes:?? ? The sclera is anicteric.? No obvious photophobia. ? ? The Left and Right Orbit/Lid/Conjunctiva appears normal without swelling, discoloration or injection. Nose: ? ? The nose is without deformity, discharge or tenderness; Throat: ? ? Appears normal.? The mucous membranes are pink and moist without exudates, redness or mass seen.? The tongue appears normal. Neck: The neck is supple and no apparent mass or adenopathy. Chest: The chest wall is normal in size and symmetry and has no chest wall tenderness or crepitus. ? ? The patient displays normal ventilator effort without retractions, accessory muscle use and has adequate air movement bilaterally with no wheezes and no rales. ? Cardiovascular: Regular rate and rhythm; No murmurs, rubs, or gallops; Gastrointestinal: There is moderate distention of the abdomen. There is central tenderness on palpation. No obvious hernias or mass. Bowel sounds are present and normal sounding.? No CVA tenderness. Genitourinary: Back/Spine: Extremities/Musculoskeletal/lymphatic:? ? ? The bilateral upper and lower extremities are warm. There is no evidence of arterial? insufficiency. There is no evidence of venous insufficiency/edema. The patient spontaneously moves bilateral upper and lower extremities with no pain and no limitation of movement.? There is no apparent, injury or trauma. Skin:? The skin is warm, dry and intact.? No rashes. No petechia. No purpura. No abnormal bruising.? The color is appropriate with no cyanosis. Mental status/Psychiatric: Mental status is appropriate for age. The patient has no apparent delusions, visual hallucinations, no apparent audible hallucinations. The patient has no apparent suicidal thoughts/ideation and no apparent homicidal thoughts/ideation. Neurological:? The patient is awake, alert, interactive, cordial, cooperative and is oriented to name and situation. The patient follows commands and answers historical question with no impairment.?? There is no visual disturbance apparent.? The pupils are equal and reactive bilaterally with normal eye movements and no diplopia The bilateral upper and lower extremities have normal strength, normal range of motion and normal functioning. The gait, station and balance appears? to be baseline with no acute change Course Quality Measures none Orders Category Date Time Status CT abdomen pelvis wo con Stat Exams 12/20/24 07:48 Completed CBC Stat Lab 12/20/24 07:57 Completed CMP [Comprehensive Metabolic Panel] Stat Lab 12/20/24 07:57 Completed Lipase Stat Lab 12/20/24 07:57 Completed UA [Urinalysis] Stat Lab 12/20/24 15:17 Completed Urine Culture Stat Lab 12/20/24 15:17 Received HYDROcodone*/APAP 5/325 [[place] 5/325] Med 12/20/24 08:21 Discontinued 1 tab PO X1 ONE Metoclopramide Inj [Reglan Inj] Med 12/20/24 07:48 Discontinued 10 mg IM X1 ONE Metoclopramide Inj [Reglan Inj] Med 12/20/24 16:05 Discontinued 10 mg IVP X1 ONE Morphine Inj Med 12/20/24 16:05 Discontinued 5 mg IVP X1 ONE Ondansetron Odt [Zofran Odt] Med 12/20/24 08:21 Discontinued 4 mg PO X1 ONE Vital Signs Vital signs: Vital Signs Temperature 97.6 F 12/20/24 07:41 Pulse Rate 98 12/20/24 07:41 Respiratory Rate 18 12/20/24 07:41 Blood Pressure 99/75 12/20/24 07:41 Pulse Oximetry (%) 100 12/20/24 07:41 Oxygen Delivery Method Room Air 12/20/24 07:41 Discharge Plan Plan Patient Disposition: HOME (Self Care) Prescriptions/Referrals Prescriptions/Med Rec: New prednisone 5 mg tablet 15 mg PO BID Qty: 60 0RF Taper: Prednisone Taper 20 mg DAILY for 2 Days and 0 Hour 10 mg DAILY for 2 Days and 0 Hour 5 mg DAILY for 7 Days and 0 Hour No Action methylprednisolone [Medrol (Da)] 4 mg tablets,dose pack 4 mg PO QAM Qty: 21 0RF metronidazole 500 mg tablet 500 mg PO TID Qty: 21 0RF ciprofloxacin HCl [Cipro] 500 mg tablet 500 mg PO BID Qty: 20 0RF hydrocodone-acetaminophen 5-325 mg tablet 1 tab PO Q6H MDD 9 PRN (Reason: pain) Qty: 14 0RF Referrals: No Primary/Family,Physician [Primary Care Provider] - In 1 week Problem List Clinical Impression: Abdominal pain, History of Crohn's disease, Leukocytosis Patient/Caregiver Discharge Instructions Additional Instructions: Today your medical workup reveals a CT scan has no acute finding no surgical finding. As Dr. Gabriel recommended you can take prednisone 15 mg twice a day for the next [address] Marquez next week. As we discussed he is in [place] and [place] [facility] [employer] [facility] [place] [facility] [place] office for a follow-up appointment. If you are getting worse please contact him for further guidance. As we discussed if you are getting worse you are always welcome to return for reevaluation as we both know the Crohn's can cause serious complications but fortunately today there is no evidence of that. Also has we discussed all opioid or pain medications must come from your primary care doctor or your supervisor painting [employer]. Print Language: Portuguese MDM Narrative [facility] hospital course: I, Jocelyn Mancia, am scribing for and in the presence of Dr. Morley. Patient comes in with abdominal pain states he has a Crohn's flareup and has had nausea and vomiting and feels quite uncomfortable. Sees his doctor Gretchen who is a GI doctor in [place]. He is also on Remicade for 2 years for his Crohn's disease Medical workup today reveals a white count is elevated at 20.1 thousand with a hemoglobin of 14.4 electrolytes are within normal is BUN/creatinine are 14 and 1.1. Transaminases and bilirubin are normal. Reevaluation of the patient shows he still complaining of pain but the CT scan reveals no acute process other than a mild ileus in his large and small bowel. I contacted Dr. Gabriel our GI who knows this patient and discussed the case at length he feels start the patient on 50 mg of prednisone twice daily follow-up with Dr. Marquez early next week and return if getting worse was a good plan. Patient is somewhat unhappy with going home because he feels he needs to be admitted but I explained that would be the plan at this time. He does have a soft and benign belly and CT scan confirms that. Clinical Information Provided by patient Medical Records Reviewed [facility] Meds/Rx Considered, not Ordered None Labs/Rad/Tests considered, not Ordered None Chronic Illness/Social Conditions Add or document further as needed: Crohn's disease for 12 years Lab Interpretation Labs: see narrative above Imaging Imaging interpretation: see narrative above Radiology reports / interpretation(s): Procedure(s): CT abdomen pelvis wo con Accession Number(s): [id number] cc: Pieter Guzman; Lalit Hudson MD; NO PRIMARY/FAMILY,PHYSICIAN~ Examination: CT abdomen and pelvis without contrast. Coronal 3-D reconstructions. Sagittal 2-D reconstructions. Date and time of exam:December 20, 2024 11:25 AM Comparison October 27, 2024 INDICATIONS: Abdominal pain in the left lower abdomen and diarrhea today CTDI: vol (mGy): 5.30 DLP: (mGycm): 302 Technique: Axial images of the abdomen have been obtained, 3 mm slice thickness Intravenous contrast material has not been administered. Low dose protocols were performed. One or more of the following dose reduction techniques were used; automated exposure control, adjustment of the mA and/or KV according to patient size, use of iterative reconstruction technique. Findings: No focal liver or splenic lesions No gallstones No pancreatic mass Multiple subcentimeter right renal calculi, no hydronephrosis or ureteral calculi Aorta normal size Mildly fluid distended colon and small bowel loops Partial visualization normal appendix No diverticulitis Contracted urinary bladder No prostatomegaly Mild osteopenia IMPRESSION: Multiple nonobstructing right renal calculi, no hydronephrosis or ureteral calculi No CT findings of appendicitis Mild colonic and small bowel ileus Dictated By: Lalit Hudson MD Medication Administration(s) Medication Administration History Discontinued Medications Hydrocodone Bitart/Acetaminophen (Hydrocodone/Apap 5/325 Tablet) 1 tab PO X1 ONE Stop: 12/20/24 08:22 Last Admin: 12/20/24 08:32 Dose: 1 tab Documented By: MIGNON Metoclopramide HCl (Metoclopramide Inj 5 Mg/Ml Vial 2 Ml) 10 mg IM X1 ONE; Protocol Stop: 12/20/24 07:49 Last Admin: 12/20/24 08:17 Dose: 10 mg Documented By: MIGNON Metoclopramide HCl (Metoclopramide Inj 5 Mg/Ml Vial 2 Ml) 10 mg IVP X1 ONE; Protocol Stop: 12/20/24 16:06 Last Admin: 12/20/24 16:56 Dose: 10 mg Documented By: CHENG Morphine Sulfate (Morphine Sulf Inj 10 Mg/Ml Vial) 5 mg IVP X1 ONE Stop: 12/20/24 16:06 Last Admin: 12/20/24 16:56 Dose: 5 mg Documented By: CHENG Ondansetron HCl (Ondansetron Odt 4 Mg Tabrap) 4 mg PO X1 ONE; Protocol Stop: 12/20/24 08:22 Last Admin: 12/20/24 08:31 Dose: 4 mg Documented By: MIGNON Diagnosis Differential diagnosis: exacerbation of Crohn's disease, poisoning, pancreatitis, appendicitis
[2024-12-20] MEDS: MORPHINE SULF INJ 10 MG/ML VIAL 5 MG IVP (16:56)
[2024-12-20] MEDS: METOCLOPRAMIDE INJ 5 MG/ML VIAL 2 ML 10 MG IVP (16:56)
--- NOTE | 2024-12-20 19:58 | PC.NURSE ---
No diarrhea during ER visit.
--- NOTE | 2024-12-20 20:09 | PD.EDADDENDU ---
Emergency Room Addendum Addendum Narrative: Forgot to mention patient ambulated the halls with any difficulty his O2 sats are normal his vital signs are normal recheck of his abdomen shows a soft and benign belly. 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
== END 2024-12-20 21:11 | disposition home or self-care (01) ==
PROVIDERS: Nurse Practitioner Family; Emergency Provider Emergency Medicine
DX: K56.7 Ileus, unspecified (principal); N20.0 Calculus of kidney; K50.90 Crohn's disease, unspecified, without complications; D72.829 Elevated white blood cell count, unspecified
CPT/HCPCS: 36415; 74176; 80053; 81001; 83690; 85025; 87086; 96372; 96374; 96375; 99284; J2270; J2765; Q0162; A9270